=== PATIENT | male | born 1950 | race Caucasian/White ===

== ENCOUNTER 2020-08-01 11:49 | Outpatient (REF) | payer MEDICARE, SELFPAY ==
[2020-08-01 13:53] LABS: MANUAL DIFF FLAG NO
[2020-08-01 14:03] LABS: Basophils Absolute Auto 0.1 X10*3/uL (0.0-0.2); Basophils Percent Auto 0.8 % (0-2); Eosinophils Absolute Auto 0.1 X10*3/uL (0.0-0.4); Eosinophils Percent Auto 2.2 % (0-4); Hematocrit 39.5 % (42-52); Hemoglobin 13.9 g/dl (14.0-18.0); Imm Gran Abs Auto 0.03 X10*3/uL (0.00-0.03); Imm Gran Pct Auto 0.5 % (0.0-0.4); Lymphocytes Absolute Auto 1.1 X10*3/uL (1.2-4.9); Lymphocytes Percent Auto 17.4 % (20-40); Mean Corpuscular HGB Conc 35.2 g/dl (31.0-36.0); Monocytes Absolute Auto 0.6 X10*3/uL (0.1-1.2); Neutrophils Absolute Auto 4.4 X10*3/uL (2.0-8.3); Neutrophils Percent Auto 70.1 % (45-73); Platelet Count 163 X10*3/uL (160-400); Red Blood Count 4.34 X10*6/uL (4.60-5.80); Red Cell Distribution Width 12.4 % (11.0-16.0); White Blood Count 6.3 X10*3/uL (4.8-10.8)
[2020-08-01 14:06] LABS: Estimated Average Glucose 183 mg/dL
[2020-08-01 14:39] LABS: Glucose Urine UA NEG (NEG); Leukocyte Esterase Urine NEG (NEG); Nitrite Urine NEG (NEG); Specific Gravity - Urine 1.025 (1.005-1.025); Urine Blood NEG (NEG); Urine Ketones NEG (NEG); Urine Protein NEG (NEG-TRACE)
[2020-08-01 14:42] LABS: Appearance Urine CLEAR; Color Urine YELLOW
[2020-08-01 14:44] LABS: Creatinine Urine 110.91 mg/dL; Microalbum/Creatinine Ratio Ur 12.6 ug/mg cr
[2020-08-01 14:49] LABS: Alanine Aminotransferase 102 U/L (0-40); Albumin Level 4.1 g/dL (3.5-5.0); Alkaline Phosphatase 35 U/L (39-117); Anion Gap 17 (12-20); Aspartate Amino Transferase 83 U/L (5-37); Bilirubin Total 1.2 mg/dL (0.0-1.0); Blood Urea Nitrogen 34 mg/dL (9-16); Calcium 9.1 mg/dL (8.4-10.2); Carbon Dioxide 23 mmol/L (22-29); Chloride 99 mmol/L (96-108); Cholesterol 142 mg/dL; Estimated Glomerular Filt Rate 48; Glucose Fasting 202 mg/dL (60-99); HDL Cholesterol 35 mg/dL; LDL Cholesterol Calculated 52 mg/dl; Potassium 4.2 mmol/l (3.3-5.1); Sodium 135 mmol/L (135-145); Total Protein 6.9 g/dL (6.5-8.0); Triglycerides 276 mg/dL
[2020-08-01 15:19] LABS: RBC Urine 0 /HPF (0); Squamous Epithelial Cell Urine TRACE /LPF; WBC Urine 0-2 /HPF (0-4)
== END 2020-08-01 11:50 | disposition home or self-care (01) ==
LOC: HO.HMGCLDS 11:49
PROVIDERS: PCP Internal Medicine; Visit Provider Internal Medicine
DX: E11.9 Type 2 diabetes mellitus without complications (principal); I48.20 Chronic atrial fibrillation, unspecified; I10 Essential (primary) hypertension; E66.09 Other obesity due to excess calories; K22.70 Barrett's esophagus without dysplasia
CPT/HCPCS: 36415; 80053; 80061; 81001; 82043; 83036; 85025

== ENCOUNTER 2020-10-30 12:11 | Outpatient (REF) | payer MEDICARE, SELFPAY ==
[2020-10-30 13:58] LABS: MANUAL DIFF FLAG NO
[2020-10-30 14:09] LABS: Basophils Percent Auto 0.5 % (0-2); Eosinophils Absolute Auto 0.2 X10*3/uL (0.0-0.4); Eosinophils Percent Auto 2.7 % (0-4); Hematocrit 40.4 % (42-52); Hemoglobin 13.8 g/dl (14.0-18.0); Imm Gran Abs Auto 0.03 X10*3/uL (0.00-0.03); Imm Gran Pct Auto 0.5 % (0.0-0.4); Lymphocytes Absolute Auto 1.2 X10*3/uL (1.2-4.9); Lymphocytes Percent Auto 18.4 % (20-40); Mean Corpuscular HGB Conc 34.2 g/dl (31.0-36.0); Mean Corpuscular Hemoglobin 31.7 pg (27.0-33.0); Mean Corpuscular Volume 92.7 fL (80-98); Mean Platelet Volume 11.6 fL (9.4-12.4); Monocytes Absolute Auto 0.7 X10*3/uL (0.1-1.2); Monocytes Percent Auto 10.3 % (2-11); Neutrophils Absolute Auto 4.5 X10*3/uL (2.0-8.3); Neutrophils Percent Auto 67.6 % (45-73); Platelet Count 215 X10*3/uL (160-400); Red Blood Count 4.36 X10*6/uL (4.60-5.80); Red Cell Distribution Width 12.3 % (11.0-16.0); White Blood Count 6.6 X10*3/uL (4.8-10.8)
[2020-10-30 14:30] LABS: Alanine Aminotransferase 85 U/L (0-40); Albumin Level 4.2 g/dL (3.5-5.0); Alkaline Phosphatase 34 U/L (39-117); Anion Gap 16 (12-20); Aspartate Amino Transferase 55 U/L (5-37); Bilirubin Total 0.8 mg/dL (0.0-1.0); Blood Urea Nitrogen 32 mg/dL (9-16); Calcium 9.4 mg/dL (8.4-10.2); Carbon Dioxide 28 mmol/L (22-29); Chloride 100 mmol/L (96-108); Cholesterol 142 mg/dL; Estimated Glomerular Filt Rate 40; Glucose Fasting 152 mg/dL (60-99); HDL Cholesterol 37 mg/dL; LDL Cholesterol Calculated 72 mg/dl; Potassium 4.7 mmol/l (3.3-5.1); Sodium 139 mmol/L (135-145); Total Protein 7.1 g/dL (6.5-8.0); Triglycerides 168 mg/dL
[2020-10-30 14:33] LABS: Estimated Average Glucose 123 mg/dL; Hemoglobin A1c % 5.9 %
== END 2020-10-30 12:12 | disposition home or self-care (01) ==
LOC: HO.HMGCLDS 12:11
PROVIDERS: PCP Internal Medicine; Visit Provider Internal Medicine
DX: E11.9 Type 2 diabetes mellitus without complications (principal); I10 Essential (primary) hypertension; K22.70 Barrett's esophagus without dysplasia; E66.09 Other obesity due to excess calories
CPT/HCPCS: 36415; 80053; 80061; 83036; 85025

== ENCOUNTER → 2020-12-11 13:45 | Outpatient (BNVA) | payer MEDICARE, SELFPAY | PROVIDERS: PCP Internal Medicine; Visit Provider Internal Medicine Cardiovascular Disease | DX: I48.20 Chronic atrial fibrillation, unspecified (principal); I10 Essential (primary) hypertension | CPT/HCPCS: 93005; 99212 ==

== ENCOUNTER 2021-02-04 13:02 | Outpatient (REF) | payer MEDICARE, SELFPAY ==
[2021-02-04 13:56] LABS: Glucose Urine UA NEG (NEG); Leukocyte Esterase Urine NEG (NEG); Nitrite Urine NEG (NEG); PH 5.5 (5.0-8.0); Specific Gravity - Urine 1.025 (1.005-1.025); Urine Blood NEG (NEG); Urine Ketones NEG (NEG); Urine Protein NEG (NEG-TRACE)
[2021-02-04 13:59] LABS: Appearance Urine CLEAR; Color Urine YELLOW
[2021-02-04 14:06] LABS: RBC Urine 0 /HPF (0); WBC Urine 0 /HPF (0-4)
[2021-02-04 14:17] LABS: Estimated Average Glucose 117 mg/dL; Hemoglobin A1c % 5.7 %
[2021-02-04 14:33] LABS: Creatinine Urine 143.68 mg/dL; Microalbum/Creatinine Ratio Ur 34.1 ug/mg cr
[2021-02-04 14:40] LABS: Alanine Aminotransferase 89 U/L (0-40); Albumin Level 4.3 g/dL (3.5-5.0); Alkaline Phosphatase 36 U/L (39-117); Anion Gap 17 (12-20); Aspartate Amino Transferase 64 U/L (5-37); Bilirubin Total 1.7 mg/dL (0.0-1.0); Blood Urea Nitrogen 28 mg/dL (9-16); Calcium 9.5 mg/dL (8.4-10.2); Carbon Dioxide 26 mmol/L (22-29); Chloride 99 mmol/L (96-108); Estimated Glomerular Filt Rate 44; Glucose Random 259 mg/dL (60-115); Potassium 4.4 mmol/L (3.3-5.1); Sodium 138 mmol/L (135-145); Total Protein 7.2 g/dL (6.5-8.0)
== END 2021-02-04 13:03 | disposition home or self-care (01) ==
LOC: HO.HMGCLDS 13:02
PROVIDERS: PCP Internal Medicine; Visit Provider Internal Medicine
DX: E11.9 Type 2 diabetes mellitus without complications (principal); I10 Essential (primary) hypertension
CPT/HCPCS: 36415; 80053; 81001; 82043; 83036

== ENCOUNTER 2021-05-03 13:32 | Outpatient (REF) | payer MEDICARE, SELFPAY ==
[2021-05-03 17:11] LABS: Alanine Aminotransferase 85 U/L (0-40); Albumin Level 4.1 g/dL (3.5-5.0); Alkaline Phosphatase 37 U/L (39-117); Anion Gap 16 (12-20); Aspartate Amino Transferase 64 U/L (5-37); Bilirubin Total 1.3 mg/dL (0.0-1.0); Blood Urea Nitrogen 31 mg/dL (9-16); Calcium 9.1 mg/dL (8.4-10.2); Carbon Dioxide 28 mmol/L (22-29); Chloride 101 mmol/L (96-108); Estimated Glomerular Filt Rate 48; Glucose Random 266 mg/dL (60-115); Potassium 4.5 mmol/L (3.3-5.1); Sodium 140 mmol/L (135-145)
== END 2021-05-03 13:33 | disposition home or self-care (01) ==
LOC: HO.HMGCLDS 13:32
PROVIDERS: PCP Internal Medicine; Visit Provider Internal Medicine
DX: E11.9 Type 2 diabetes mellitus without complications (principal); I10 Essential (primary) hypertension
CPT/HCPCS: 36415; 80053

== ENCOUNTER 2021-09-02 12:06 | Outpatient (REF) | payer MEDICARE, SELFPAY ==
[2021-09-02 13:56] LABS: MANUAL DIFF FLAG NO
[2021-09-02 14:01] LABS: Basophils Percent Auto 0.7 % (0-2); Eosinophils Absolute Auto 0.2 X10*3/uL (0.0-0.4); Eosinophils Percent Auto 2.9 % (0-4); Imm Gran Abs Auto 0.02 X10*3/uL (0.00-0.03); Imm Gran Pct Auto 0.4 % (0.0-0.4); Lymphocytes Percent Auto 17.3 % (20-40); Mean Corpuscular Hemoglobin 32.7 pg (27.0-33.0); Mean Corpuscular Volume 93.5 fL (80.0-98.0); Mean Platelet Volume 11.6 fL (9.4-12.4); Monocytes Absolute Auto 0.6 X10*3/uL (0.1-1.2); Monocytes Percent Auto 10.8 % (2-11); Neutrophils Absolute Auto 3.8 x10*3/uL (2.0-8.3); Neutrophils Percent Auto 67.9 % (45-73); Platelet Count 176 X10*3/uL (160-400); Red Blood Count 4.28 X10*6/uL (4.60-5.80); Red Cell Distribution Width 12.4 % (11.0-16.0); White Blood Count 5.6 X10*3/uL (4.8-10.8)
[2021-09-02 14:16] LABS: Estimated Average Glucose 123 mg/dL; Hemoglobin A1C 149.9742 umol/L; Hemoglobin A1c % 5.9 %
[2021-09-02 14:28] LABS: Alanine Aminotransferase 112 U/L (0-40); Albumin Level 4.1 g/dL (3.5-5.0); Alkaline Phosphatase 32 U/L (39-117); Anion Gap 17 (12-20); Aspartate Amino Transferase 84 U/L (5-37); Bilirubin Total 1.3 mg/dL (0.0-1.0); Blood Urea Nitrogen 22 mg/dL (9-16); Calcium 9.4 mg/dL (8.4-10.2); Carbon Dioxide 27 mmol/L (22-29); Chloride 100 mmol/L (96-108); Cholesterol 149 mg/dL; Estimated Glomerular Filt Rate 46; Glucose Fasting 162 mg/dL (60-99); HDL Cholesterol 41 mg/dL; LDL Cholesterol Calculated 79 mg/dl; Potassium 5.1 mmol/L (3.3-5.1); Sodium 139 mmol/L (135-145); Triglycerides 148 mg/dL
[2021-09-02 14:33] LABS: Creatinine Urine 193.29 mg/dL; Microalbum/Creatinine Ratio Ur 19.6 ug/mg cr
[2021-09-02 14:42] LABS: Appearance Urine CLEAR; Color Urine YELLOW; Glucose Urine UA NEG (NEG); Leukocyte Esterase Urine NEG (NEG); Nitrite Urine NEG (NEG); Specific Gravity - Urine >= 1.030 (1.005-1.025); Urine Blood NEG (NEG); Urine Ketones NEG (NEG); Urine Protein TRACE MG/DL (NEG-TRACE)
[2021-09-02 14:55] LABS: Thyroid Stimulating Hormone 1.82 uIU/mL (0.32-4.0); Vitamin D 25-OH Total 31.9 ng/mL (>30)
[2021-09-02 15:09] LABS: PSA,Total (Free>4and<10) 14.42 ng/mL (0.00-4.00)
[2021-09-02 15:17] LABS: RBC Urine 0-2 /HPF (0); WBC Urine 0-2 /HPF (0-4)
== END 2021-09-02 12:07 | disposition home or self-care (01) ==
LOC: HO.HMGCLDS 12:06
PROVIDERS: PCP Internal Medicine; Visit Provider Internal Medicine
DX: E11.9 Type 2 diabetes mellitus without complications (principal); I10 Essential (primary) hypertension; I48.20 Chronic atrial fibrillation, unspecified; K22.70 Barrett's esophagus without dysplasia; Z12.5 Encounter for screening for malignant neoplasm of prostate
CPT/HCPCS: 36415; 80053; 80061; 81001; 82043; 82306; 83036; 84153; 84443; 85025

== ENCOUNTER 2021-09-16 12:23 | Inpatient (IN) | payer MEDICARE, SELFPAY ==
--- NOTE | 2021-09-16 | ECG_ITS ---
Test Reason : AFIB Blood Pressure : / mmHG Vent. Rate : 115 BPM Atrial Rate : 000 BPM P-R Int : 000 ms QRS Dur : 098 ms QT Int : 354 ms P-R-T Axes : 000 090 -23 degrees QTc Int : 489 ms Atrial fibrillation with rapid ventricular response with premature ventricular or aberrantly conducted complexes Rightward axis Incomplete right bundle branch block Nonspecific ST and T wave abnormality Abnormal ECG When compared with ECG of 10-MAR-2018 14:00, Atrial fibrillation has replaced Sinus rhythm Vent. rate has increased BY 63 BPM Nonspecific T wave abnormality no longer evident in Lateral leads Referred By: Generic ED Physician Electronically Signed By:Toño Baptiste
--- NOTE | ~2021-09-16 | XR_ITS ---
EXAMINATION: XR CHEST CLINICAL INFORMATION: Ankle swelling. Cardiac history. COMPARISON: Previous chest x-ray April 2018 TECHNIQUE: 2 views of the chest were obtained. FINDINGS: The cardiac silhouette is slightly enlarged. Hilar and mediastinal contours are unremarkable. The lungs are clear. There is no pleural effusion. There are degenerative changes of the spine. XR/XR chest 2V IMPRESSION: Slightly enlarged cardiac silhouette.
[2021-09-16 13:08] VITALS: BP 126/79; PULSE 103; RESP 18; TEMP 37.2; O2SAT 97; BMI 34.2
[2021-09-16 14:00] LABS: MANUAL DIFF FLAG NO
[2021-09-16 14:04] LABS: Basophils Percent Auto 0.2 % (0-2); Hematocrit 37.8 % (42.0-52.0); Hemoglobin 12.9 g/dl (14.0-18.0); Imm Gran Abs Auto 0.08 X10*3/uL (0.00-0.03); Imm Gran Pct Auto 0.6 % (0.0-0.4); Lymphocytes Percent Auto 7.7 % (20-40); Mean Corpuscular HGB Conc 34.1 g/dl (31.0-36.0); Mean Corpuscular Hemoglobin 31.9 pg (27.0-33.0); Mean Corpuscular Volume 93.6 fL (80.0-98.0); Mean Platelet Volume 10.7 fL (9.4-12.4); Monocytes Absolute Auto 1.4 X10*3/uL (0.1-1.2); Monocytes Percent Auto 10.3 % (2-11); Neutrophils Percent Auto 81.2 % (45-73); Platelet Count 324 X10*3/uL (160-400); Red Blood Count 4.04 X10*6/uL (4.60-5.80); Red Cell Distribution Width 12.1 % (11.0-16.0); White Blood Count 13.5 X10*3/uL (4.8-10.8)
[2021-09-16 14:17] LABS: Anion Gap 21 (12-20); Blood Urea Nitrogen 26 mg/dL (9-16); C Reactive Protein 24.97 mg/dL (< or = 0.50); Calcium 8.7 mg/dL (8.4-10.2); Carbon Dioxide 23 mmol/L (22-29); Chloride 93 mmol/L (96-108); Creatinine Clr Calc Pharmacy 55.2; Estimated Glomerular Filt Rate 51; Glucose Random 186 mg/dL (60-115); Sodium 133 mmol/L (135-145)
[2021-09-16 14:21] LABS: B Type Natriuretic Peptide 333 pg/mL (<100)
[2021-09-16 14:45] LABS: Erythrocyte Sedimentation Rate 86 MM/HR (0-15)
--- NOTE | 2021-09-16 17:28 | ED.GENADULT ---
HPI - General Adult General Chief complaint: General Medical Stated complaint: Swollen ankles/pain when walking Time Seen by Provider: 09/16/21 17:28 Source: patient Mode of arrival: ambulatory Limitations: no limitations History of Present Illness HPI narrative: Over the last weekend he had fever and chills, 7days ago he had the flu shot, now with diffuse arthralgias and myalgias. Unable to walk secondary to pain. Onset (ago): day(s) Severity: moderate Quality: aching Pain Consistency: constant Associated symptoms: fever/chills Related Data Home Medications Medication Instructions Recorded Confirmed brimonidine 0.2 % eye drops 1 drp OPHTHALMIC (EYE) BID 12/11/20 09/16/21 hydrochlorothiazide 50 mg tablet 50 mg PO DAILY 12/11/20 09/17/21 lisinopril 40 mg tablet 40 mg PO DAILY 12/11/20 09/16/21 metformin 750 mg tablet,extended 2,250 mg PO BEDTIME 12/11/20 09/16/21 release 24 hr pantoprazole 40 mg tablet,delayed 40 mg PO DAILY 12/11/20 09/16/21 release simvastatin 10 mg tablet 10 mg PO BEDTIME 12/11/20 09/16/21 netarsudil 0.02 %-latanoprost 1 drp OPHTHALMIC (EYE) BEDTIME 09/16/21 09/16/21 0.005 % eye drops ([facility]) timolol maleate 0.5 % eye drops 1 drp OPHTHALMIC (EYE) QAM 09/16/21 09/16/21 Previous Rx's Medication Instructions Recorded metoprolol succinate 200 mg 200 mg PO DAILY #90 cap 11/27/20 tablet,extended release 24 hr verapamil 180 mg 24 hr 180 mg PO DAILY #90 cap 04/19/21 capsule,extended release rivaroxaban 20 mg tablet 20 mg PO DAILY #90 tab 06/18/21 glipizide 5 mg tablet 5 mg PO BIDWMEAL #60 tab 09/21/21 prednisone 10 mg tablet See Rx Instructions .ROUTE 09/21/21 .COMPLEX #45 tab tramadol 50 mg tablet 50 mg PO TID PRN #30 tab 09/21/21 Allergies Allergy/AdvReac Type Severity Reaction Status Date / Time No Known Allergies Allergy Verified 09/16/21 13:08 [No Known Allergies*] Review of Systems Constitutional: Constitutional: Reports no additional constitutional complaints Eyes: Eyes: Reports no additional eye complaints ENT: Denies dizziness Cardiovascular: Cardiovascular: Reports no additional cardiovascular complaints Respiratory: Respiratory: Reports as per HPI Gastrointestinal: Gastrointestinal: Reports no additional gastrointestinal complaints Musculoskeletal: Musculoskeletal: Reports no additional musculoskeletal complaints Integumentary/Breasts: Skin/Breast: Denies rash Neurologic: Reports system reviewed and no additional complaints, except as documented, Denies dizziness and Denies Sensory deficit (Neuro) Psychiatric: Psychiatric: Denies anxiety [facility] Past Medical History Medical History Chronic atrial fibrillation Diabetes mellitus HTN (hypertension) Surgical History History of hip surgery Hx of tonsillectomy Family History Family History Father CVD (cardiovascular disease) Mother No problems noted. Social History Social History Household Members: Spouse Housing: House Do you presently have visiting nurse or other home services: No Patient Tobacco Use Status: Former Tobacco user Tobacco use type: Cigarette Second Hand Smoke Exposure: Yes service: No Current occupational status: employed Physical Exam Vital Signs: Vital Signs: Last Vital Signs Temp 97.8 F 09/21/21 12:00 Pulse 86 09/21/21 12:00 Resp 18 09/21/21 12:00 BP 109/74 09/21/21 12:00 Pulse Ox 97 09/21/21 12:00 BMI result Body Mass Index 34.2 Const: General: healthy appearing Nutritional Appearance: average body habitus Orientation/consciousness: oriented to person and patient oriented x3 Limitations: no limitations HENMT: Head: Yes normal to inspection Ears: external ears normal General nose exam: Normal external nose present Mouth: Normal oral and palatal mucosa present and oropharynx normal Throat: Yes posterior oropharynx normal Eyes: General: appearance normal, both eyes and all related structures Neck: Other: supple Neck: Yes normal visual inspection Chest: Chest palpation & inspection: normal inspection of the chest Resp: Auscultation: clear to auscultation bilaterally Cardio: Other: IRRR Jugular venous distension: no JVD GI: Inspection: Yes normal to inspection Palpation (GI): Soft to palpation, nontender and No hepatosplenomegaly present Auscultation: normal bowel sounds : General: Yes no CVA tenderness Back/Spine/Pelvis: Back: no CVA tenderness Skin: General skin exam: no rashes or lesions noted Neuro: General: oriented to person and patient oriented x3 Cranial nerves: Yes CN's II-XII intact bilaterally Motor exam (neuro): 5/5 motor strength present throughout Sensory Exam: No Sensory deficit (Neuro) Extrem: Other: 3+ edema bilaterally Psych: Appearance: grossly normal Course Reevaluation(s) Reevaluation #1: patient with elevated WBC, with diffuse joint pain, chills, sed rate of 87, elevated CRP, unable to ambulate secondary to arthraligias. Patient pearce cultured will admit for infectious vs rheumatologic source of inflammation. Time: 20:38 Medical Decision Making Lab Data Result diagrams: 09/21/21 05:37 09/21/21 05:37 Labs: Lab Results 09/16/21 09/16/21 09/16/21 Range/Units 13:55 13:55 13:55 WBC 13.5 H (4.8-10.8) X10*3/uL RBC 4.04 L (4.60-5.80) X10*6/uL Hgb 12.9 L (14.0-18.0) g/dl Hct 37.8 L (42.0-52.0) % MCV 93.6 (80.0-98.0) fL MCH 31.9 (27.0-33.0) pg MCHC 34.1 (31.0-36.0) g/dl RDW 12.1 (11.0-16.0) % Plt Count 324 D (160-400) X10*3/uL MPV 10.7 (9.4-12.4) fL Immature Gran % (Auto) 0.6 H (0.0-0.4) % Neut % (Auto) 81.2 H (45-73) % Lymph % (Auto) 7.7 L (20-40) % [place] % (Auto) 10.3 (2-11) % Eos % (Auto) 0.0 (0-4) % Baso % (Auto) 0.2 (0-2) % Lymph # (Auto) 1.0 L (1.2-4.9) X10*3/uL [place] # (Auto) 1.4 H (0.1-1.2) X10*3/uL Eos # (Auto) 0.0 (0.0-0.4) X10*3/uL Baso # (Auto) 0.0 (0.0-0.2) X10*3/uL Abs Immat Gran (auto) 0.08 H (0.00-0.03) X10*3/uL Absolute Neuts (auto) 11.0 H (2.0-8.3) x10*3/uL Absolute Nucleated RBC 0.000 (0.0-0.012) X10*3/uL Nucleated RBC % (auto) 0.0 (0.0-0.2) /100WBC ESR (0-15) MM/HR Sodium 133 L (135-145) mmol/L Potassium 4.0 D (3.3-5.1) mmol/L Chloride 93 L (96-108) mmol/L Carbon Dioxide 23 (22-29) mmol/L Anion Gap 21 H (12-20) BUN 26 H (9-16) mg/dL Creatinine 1.38 (0.5-1.4) mg/dL Estim Creat Clear Calc 55.2 Estimated GFR 51 Random Glucose 186 H (60-115) mg/dL Lactic Acid (0.5-2.0) mmol/L Calcium 8.7 D (8.4-10.2) mg/dL Total Bilirubin (0.0-1.0) mg/dL Direct Bilirubin (0.0-0.5) mg/dL AST (5-37) U/L ALT (0-40) U/L Alkaline Phosphatase (39-117) U/L C-Reactive Protein 24.97 H (< or = 0.50) mg/dL B-Natriuretic Peptide 333 H (<100) pg/mL Total Protein (6.5-8.0) g/dL Albumin (3.5-5.0) g/dL Urine Color Urine Appearance Urine pH (5.0-8.0) Ur Specific [place] (1.005-1.025) Urine Protein (NEG-TRACE) MG/DL Urine Glucose (UA) (NEG) MG/DL Urine Ketones (NEG) MG/DL Urine Blood (NEG) Urine Nitrite (NEG) Ur Leukocyte Esterase (NEG) Urine RBC (0) /HPF Urine WBC (0-4) /HPF Ur Squamous Epith Cells /LPF Urine Bacteria /LPF Influenza Type A (PCR) (Negative) Influenza Type B (PCR) (Negative) RSV RNA Qual (PCR) (Negative) SARS-CoV-2 RNA (RT-PCR) (Negative) 09/16/21 09/16/21 09/16/21 Range/Units 13:55 19:31 19:32 WBC (4.8-10.8) X10*3/uL RBC (4.60-5.80) X10*6/uL Hgb (14.0-18.0) g/dl Hct (42.0-52.0) % MCV (80.0-98.0) fL MCH (27.0-33.0) pg MCHC (31.0-36.0) g/dl RDW (11.0-16.0) % Plt Count (160-400) X10*3/uL MPV (9.4-12.4) fL Immature Gran % (Auto) (0.0-0.4) % Neut % (Auto) (45-73) % Lymph % (Auto) (20-40) % [place] % (Auto) (2-11) % Eos % (Auto) (0-4) % Baso % (Auto) (0-2) % Lymph # (Auto) (1.2-4.9) X10*3/uL [place] # (Auto) (0.1-1.2) X10*3/uL Eos # (Auto) (0.0-0.4) X10*3/uL Baso # (Auto) (0.0-0.2) X10*3/uL Abs Immat Gran (auto) (0.00-0.03) X10*3/uL Absolute Neuts (auto) (2.0-8.3) x10*3/uL Absolute Nucleated RBC (0.0-0.012) X10*3/uL Nucleated RBC % (auto) (0.0-0.2) /100WBC ESR 86 H (0-15) MM/HR Sodium (135-145) mmol/L Potassium (3.3-5.1) mmol/L Chloride (96-108) mmol/L Carbon Dioxide (22-29) mmol/L Anion Gap (12-20) BUN (9-16) mg/dL Creatinine (0.5-1.4) mg/dL Estim Creat Clear Calc Estimated GFR Random Glucose (60-115) mg/dL Lactic Acid (0.5-2.0) mmol/L Calcium (8.4-10.2) mg/dL Total Bilirubin (0.0-1.0) mg/dL Direct Bilirubin (0.0-0.5) mg/dL AST (5-37) U/L ALT (0-40) U/L Alkaline Phosphatase (39-117) U/L C-Reactive Protein (< or = 0.50) mg/dL B-Natriuretic Peptide (<100) pg/mL Total Protein (6.5-8.0) g/dL Albumin (3.5-5.0) g/dL Urine Color DK YELLOW Urine Appearance CLEAR Urine pH 5.5 (5.0-8.0) Ur Specific [place] >= 1.030 H (1.005-1.025) Urine Protein 1+ H (NEG-TRACE) MG/DL Urine Glucose (UA) NEG (NEG) MG/DL Urine Ketones 15 (NEG) MG/DL Urine Blood NEG (NEG) Urine Nitrite POS H (NEG) Ur Leukocyte Esterase NEG (NEG) Urine RBC 0-2 (0) /HPF Urine WBC 0-2 (0-4) /HPF Ur Squamous Epith Cells TRACE /LPF Urine Bacteria TRACE /LPF Influenza Type A (PCR) NEGATIVE (Negative) Influenza Type B (PCR) NEGATIVE (Negative) RSV RNA Qual (PCR) NEGATIVE (Negative) SARS-CoV-2 RNA (RT-PCR) NEGATIVE (Negative) 09/16/21 09/16/21 Range/Units 19:44 19:45 WBC (4.8-10.8) X10*3/uL RBC (4.60-5.80) X10*6/uL Hgb (14.0-18.0) g/dl Hct (42.0-52.0) % MCV (80.0-98.0) fL MCH (27.0-33.0) pg MCHC (31.0-36.0) g/dl RDW (11.0-16.0) % Plt Count (160-400) X10*3/uL MPV (9.4-12.4) fL Immature Gran % (Auto) (0.0-0.4) % Neut % (Auto) (45-73) % Lymph % (Auto) (20-40) % [place] % (Auto) (2-11) % Eos % (Auto) (0-4) % Baso % (Auto) (0-2) % Lymph # (Auto) (1.2-4.9) X10*3/uL [place] # (Auto) (0.1-1.2) X10*3/uL Eos # (Auto) (0.0-0.4) X10*3/uL Baso # (Auto) (0.0-0.2) X10*3/uL Abs Immat Gran (auto) (0.00-0.03) X10*3/uL Absolute Neuts (auto) (2.0-8.3) x10*3/uL Absolute Nucleated RBC (0.0-0.012) X10*3/uL Nucleated RBC % (auto) (0.0-0.2) /100WBC ESR (0-15) MM/HR Sodium (135-145) mmol/L Potassium (3.3-5.1) mmol/L Chloride (96-108) mmol/L Carbon Dioxide (22-29) mmol/L Anion Gap (12-20) BUN (9-16) mg/dL Creatinine (0.5-1.4) mg/dL Estim Creat Clear Calc Estimated GFR Random Glucose (60-115) mg/dL Lactic Acid 1.4 (0.5-2.0) mmol/L Calcium (8.4-10.2) mg/dL Total Bilirubin 1.7 H (0.0-1.0) mg/dL Direct Bilirubin 0.9 H (0.0-0.5) mg/dL AST 26 D (5-37) U/L ALT 62 H (0-40) U/L Alkaline Phosphatase 45 D (39-117) U/L C-Reactive Protein (< or = 0.50) mg/dL B-Natriuretic Peptide (<100) pg/mL Total Protein 7.0 (6.5-8.0) g/dL Albumin 3.6 (3.5-5.0) g/dL Urine Color Urine Appearance Urine pH (5.0-8.0) Ur Specific [place] (1.005-1.025) Urine Protein (NEG-TRACE) MG/DL Urine Glucose (UA) (NEG) MG/DL Urine Ketones (NEG) MG/DL Urine Blood (NEG) Urine Nitrite (NEG) Ur Leukocyte Esterase (NEG) Urine RBC (0) /HPF Urine WBC (0-4) /HPF Ur Squamous Epith Cells /LPF Urine Bacteria /LPF Influenza Type A (PCR) (Negative) Influenza Type B (PCR) (Negative) RSV RNA Qual (PCR) (Negative) SARS-CoV-2 RNA (RT-PCR) (Negative) Imaging Data Chest x-ray: Radiologist's impression: IMPRESSION: Slightly enlarged cardiac silhouette. Discharge Plan Discharge Clinical Impression: Leukocytosis, Elevated sed rate Arthralgia Qualifiers: Joint pain location: unspecified Qualified Code(s): M25.50 - Pain in unspecified joint Patient Disposition: Admitted As Inpatient Interventions: Admission Worksheet (ED) Last Done: 09/18/21 06:28 Discharge Date/Time: 09/18/21 01:00
[2021-09-16] MEDS: Ketorolac Tromethamine 30 MG/ML VIAL IVPUSH (18:18)
--- NOTE | 2021-09-16 19:30 | PC.NURSE ---
assumed care of pt. Pt resting in stretcher in NAD. Pt remains on monitor. Pt awaiting for room assignment. Pt denies any complaints at this time. will continue to monitor pt.
[2021-09-16 20:00] VITALS: BP 109/83; PULSE 102; RESP 21; TEMP 36.7; O2SAT 97
[2021-09-16 20:02] LABS: Appearance Urine CLEAR; Color Urine DK YELLOW; Glucose Urine UA NEG (NEG); Leukocyte Esterase Urine NEG (NEG); PH 5.5 (5.0-8.0); Specific Gravity - Urine >= 1.030 (1.005-1.025); UACC Culture Trigger YES; Urine Blood NEG (NEG); Urine Ketones 15 MG/DL (NEG); Urine Protein 1+ MG/DL (NEG-TRACE)
[2021-09-16 20:12] LABS: Lactic Acid 1.4 mmol/L (0.5-2.0)
[2021-09-16 20:16] LABS: Alanine Aminotransferase 62 U/L (0-40); Albumin Level 3.6 g/dL (3.5-5.0); Alkaline Phosphatase 45 U/L (39-117); Aspartate Amino Transferase 26 U/L (5-37); Bilirubin Direct 0.9 mg/dL (0.0-0.5); Bilirubin Total 1.7 mg/dL (0.0-1.0)
[2021-09-16 20:20] LABS: Bacteria Urine TRACE /LPF; RBC Urine 0-2 /HPF (0); Squamous Epithelial Cell Urine TRACE /LPF; WBC Urine 0-2 /HPF (0-4)
[2021-09-16 20:21] LABS: Nitrite Urine POS (NEG)
[2021-09-16 20:33] LABS: Influenza A PCR NEGATIVE (Negative); Influenza B PCR NEGATIVE (Negative); Resp Syncy Virus RNA Qual PCR NEGATIVE (Negative); SARS COV2 PCR INHOUSE NEGATIVE (Negative)
--- NOTE | 2021-09-16 21:52 | PHA.MEDREC ---
Pharmacy Consult ? Medication Reconciliation Pharmacy has completed the medication reconciliation. There are no remarkable issues for provider's attention. Shawanda Anderson, CesarD
--- NOTE | 2021-09-16 22:16 | PM.IMHP ---
History of Present Illness Date of Service: 09/16/21 Chief Complaint: joint pains 71-year-old male with a past medical history of hypertension, , hyperlipidemia, diabetes,chronic AFib on Xarelto, presented to the hospital today with a chief complaint of severe joint pains diffusely. Patient reported that about 10-14 days ago he had new episode flu-like symptoms; which gradually improved; last he went to his PCP and had flu shot done. The following day started to notice severe pain in his joints diffusely more so in the bilateral ankles and knee joints; also complained of mild pain in bilateral shoulders and bilateral elbows. Denies any rash. Denies any fevers. Denies any urinary symptoms. Denies any recent travel or sick contacts. Patient reported that he met his grandchildren on the Thanksgiving - aged about 8 years. Denies being sick. Review of all other systems is negative except mentioned above ER course: Per ER team patient noted to have elevated white count, ESR and CRP; no obvious signs effusion or any concern for septic joint. Patient had severe pain on ambulation hence admitted for observation. [facility] Medical History Chronic atrial fibrillation Diabetes mellitus HTN (hypertension) Family History Father CVD (cardiovascular disease) Mother No problems noted. Pertinent family history: As mentioned above Surgical History History of hip surgery Hx of tonsillectomy Social History Advance Directives: No Advance Directives Information Provided: Yes Meds Allergies Allergy/AdvReac Type Severity Reaction Status Date / Time No Known Allergies Allergy Verified 09/16/21 13:08 [No Known Allergies*] Active Medications: Current Medications Acetaminophen (Acetaminophen 325 Mg Tablet) 650 mg PO Q6H PRN PRN Reason: Pain, Mild (Pain Scale 1-3) Dextrose (Dextrose 50 % 25 Gm/50 Ml Vial) 25 gm IVPUSH Q15M PRN; Protocol PRN Reason: per Hypoglycemia Standing Ord. Enoxaparin Sodium (Enoxaparin Sodium 40 Mg/0.4 Ml Syringe) 40 mg SUBCUT Q24H BEN Glucose (Glucose Gel 15 Gm Gel..Gram.) 15 gm PO Q15M PRN; Protocol PRN Reason: per Hypoglycemia Standing Ord. Insulin Human Lispro (Insulin Lispro 100 Unit/Ml 3 Ml Vial) 0 unit SUBCUT QIDACHS [facility]; Protocol Melatonin (Melatonin 3 Mg Tablet) 6 mg PO BEDTIME PRN PRN Reason: Insomnia Pharmacy Consult (Consult Rx Perform Med Rec) 1 each MISCELLANE ONCE PRN PRN Reason: Consult order Senna (Sennosides 8.6 Mg Tablet) 17.2 mg PO BEDTIME PRN PRN Reason: Constipation Sodium Chloride (0.9 % Sodium Chloride Flush 3 Ml Syringe) 3 ml IVFLUSH QSHIFT [facility] Home Medications Medication Instructions Recorded Confirmed Last Taken Type brimonidine 0.2 % eye drops 1 drp OPHTHALMIC (EYE) BID 12/11/20 09/16/21 Unknown History glipizide 5 mg tablet 5 mg PO DAILY 12/11/20 09/16/21 Unknown History hydrochlorothiazide 50 mg tablet 50 mg PO DAILY 12/11/20 09/16/21 Unknown History lisinopril 40 mg tablet 40 mg PO DAILY 12/11/20 09/16/21 Unknown History metformin 750 mg tablet,extended 2,250 mg PO BEDTIME 12/11/20 09/16/21 Unknown History release 24 hr pantoprazole 40 mg tablet,delayed 40 mg PO DAILY 12/11/20 09/16/21 Unknown History release simvastatin 10 mg tablet 10 mg PO BEDTIME 12/11/20 09/16/21 Unknown History netarsudil 0.02 %-latanoprost 1 drp OPHTHALMIC (EYE) BEDTIME 09/16/21 09/16/21 Unknown History [facility] timolol maleate 0.5 % eye drops 1 drp OPHTHALMIC (EYE) QAM 09/16/21 09/16/21 Unknown History Physical Exam Vital Signs and Narrative: Vital Signs: Last Vital Signs Temp 98.0 F 09/16/21 20:00 Pulse 102 H 09/16/21 20:00 Resp 21 H 09/16/21 20:00 BP 109/83 09/16/21 20:00 Pulse Ox 97 09/16/21 20:00 BMI result Body Mass Index 34.2 Gen: Appears be in no acute distress HEENT: NCAT, Moist mucosa. Pulmonary: Vesicular breath sounds, fair air entry CVS: Normal S1-S2 Abdomen: BS+, Soft, Nontender Extremities: Warm well perfused; no cross erythema/ swelling noticed around the ankles, knee joints, with joint; range of motion limited secondary to the pain. No signs of cellulitis. Neuro: Alert and awake. Integumentary: No rash noted. Results Labs CBC and Chem 7: 09/16/21 13:55 09/16/21 13:55 Labs: Laboratory Results - last 24 hr 09/16/21 09/16/21 09/16/21 13:55 13:55 13:55 MCV 93.6 MCH 31.9 MCHC 34.1 RDW 12.1 Plt Count 324 D MPV 10.7 Immature Gran % (Auto) 0.6 H Neut % (Auto) 81.2 H Lymph % (Auto) 7.7 L [place] % (Auto) 10.3 Eos % (Auto) 0.0 Baso % (Auto) 0.2 Lymph # (Auto) 1.0 L [place] # (Auto) 1.4 H Eos # (Auto) 0.0 Baso # (Auto) 0.0 Abs Immat Gran (auto) 0.08 H Absolute Neuts (auto) 11.0 H Absolute Nucleated RBC 0.000 Nucleated RBC % (auto) 0.0 ESR Anion Gap 21 H Estim Creat Clear Calc 55.2 Estimated GFR 51 Random Glucose 186 H Lactic Acid Calcium 8.7 D Total Bilirubin Direct Bilirubin AST ALT Alkaline Phosphatase C-Reactive Protein 24.97 H B-Natriuretic Peptide 333 H Total Protein Albumin Urine Color Urine Appearance Urine pH Ur Specific [place] Urine Protein Urine Glucose (UA) Urine Ketones Urine Blood Urine Nitrite Ur Leukocyte Esterase Urine RBC Urine WBC Ur Squamous Epith Cells Urine Bacteria Influenza Type A (PCR) Influenza Type B (PCR) RSV RNA Qual (PCR) SARS-CoV-2 RNA (RT-PCR) 09/16/21 09/16/21 09/16/21 13:55 19:31 19:32 MCV MCH MCHC RDW Plt Count MPV Immature Gran % (Auto) Neut % (Auto) Lymph % (Auto) [place] % (Auto) Eos % (Auto) Baso % (Auto) Lymph # (Auto) [place] # (Auto) Eos # (Auto) Baso # (Auto) Abs Immat Gran (auto) Absolute Neuts (auto) Absolute Nucleated RBC Nucleated RBC % (auto) ESR 86 H Anion Gap Estim Creat Clear Calc Estimated GFR Random Glucose Lactic Acid Calcium Total Bilirubin Direct Bilirubin AST ALT Alkaline Phosphatase C-Reactive Protein B-Natriuretic Peptide Total Protein Albumin Urine Color DK YELLOW Urine Appearance CLEAR Urine pH 5.5 Ur Specific [place] >= 1.030 H Urine Protein 1+ H Urine Glucose (UA) NEG Urine Ketones 15 Urine Blood NEG Urine Nitrite POS H Ur Leukocyte Esterase NEG Urine RBC 0-2 Urine WBC 0-2 Ur Squamous Epith Cells TRACE Urine Bacteria TRACE Influenza Type A (PCR) NEGATIVE Influenza Type B (PCR) NEGATIVE RSV RNA Qual (PCR) NEGATIVE SARS-CoV-2 RNA (RT-PCR) NEGATIVE 09/16/21 09/16/21 19:44 19:45 MCV MCH MCHC RDW Plt Count MPV Immature Gran % (Auto) Neut % (Auto) Lymph % (Auto) [place] % (Auto) Eos % (Auto) Baso % (Auto) Lymph # (Auto) [place] # (Auto) Eos # (Auto) Baso # (Auto) Abs Immat Gran (auto) Absolute Neuts (auto) Absolute Nucleated RBC Nucleated RBC % (auto) ESR Anion Gap Estim Creat Clear Calc Estimated GFR Random Glucose Lactic Acid 1.4 Calcium Total Bilirubin 1.7 H Direct Bilirubin 0.9 H AST 26 D ALT 62 H Alkaline Phosphatase 45 D C-Reactive Protein B-Natriuretic Peptide Total Protein 7.0 Albumin 3.6 Urine Color Urine Appearance Urine pH Ur Specific [place] Urine Protein Urine Glucose (UA) Urine Ketones Urine Blood Urine Nitrite Ur Leukocyte Esterase Urine RBC Urine WBC Ur Squamous Epith Cells Urine Bacteria Influenza Type A (PCR) Influenza Type B (PCR) RSV RNA Qual (PCR) SARS-CoV-2 RNA (RT-PCR) Imaging Radiologist's Impressions: Impressions Chest X-Ray 09/16/21 13:28 IMPRESSION: Slightly enlarged cardiac silhouette. Assessment and Plan (1) Arthralgia: Qualifiers: Joint pain location: unspecified Qualified Code(s): M25.50 - Pain in unspecified joint Status: Acute 71-year-old male with a past medical history of hypertension, , hyperlipidemia, diabetes,chronic AFib on Xarelto, presented to the hospital today with a chief complaint of severe joint pains diffusely. Polyarthralgia: Patient has elevated ESR CRP. Otherwise no gross of signs of bacterial infection pain control PT/ OT eventually Will obtain ALYSSA and parvovirus antibodies. Fall precautions History of hypertension / hyperlipidemia: Continue home medications metoprolol, statin, lisinopril. Hold hydrochlorothiazide. History of diabetes: Insulin sliding scale. Hold home glipizide and metformin. History of glaucoma: Continue home eye drops History of AFib: Rate controlled. Continue home Xarelto DVT prophylaxis: Patient on Xarelto Code status: Full code Quality Stroke Does the patient have a stroke diagnosis?: No VTE Prior VTE?: No VTE Risk Level:: Medical - moderate - high VTE Device Contraindication: Treatment Not Indicated VTE Drug Contraindication: N/A - Med Ordered
--- NOTE | 2021-09-17 00:36 | PC.NURSE ---
pt resting in stretcher denies cp, or SOB at this time. pt remains on monitor in NAD. will continue to monitor pt.
[2021-09-17 02:31] VITALS: BP 128/77; PULSE 106; RESP 18; TEMP 37; O2SAT 98
--- NOTE | 2021-09-17 03:12 | PC.NURSE ---
PT WAKES TO VOICE, IN NAD, RESPIRATIONS NON-LABORED AT THIS TIME. VS OBTAINED. PT AWAITING FOR DISPO.
[2021-09-17] MEDS: Omeprazole 20 MG CAPSULE.DR PO (06:04)
[2021-09-17] MEDS: Acetaminophen 325 MG TABLET 650 MG PO (06:04)
[2021-09-17 07:36] LABS: MANUAL DIFF FLAG NO
[2021-09-17 07:41] LABS: Basophils Percent Auto 0.2 % (0-2); Eosinophils Percent Auto 0.1 % (0-4); Hematocrit 34.7 % (42.0-52.0); Hemoglobin 12.1 g/dl (14.0-18.0); Imm Gran Abs Auto 0.07 X10*3/uL (0.00-0.03); Imm Gran Pct Auto 0.8 % (0.0-0.4); Lymphocytes Absolute Auto 0.7 X10*3/uL (1.2-4.9); Lymphocytes Percent Auto 7.7 % (20-40); Mean Corpuscular HGB Conc 34.9 g/dl (31.0-36.0); Mean Corpuscular Hemoglobin 32.3 pg (27.0-33.0); Mean Corpuscular Volume 92.5 fL (80.0-98.0); Mean Platelet Volume 10.4 fL (9.4-12.4); Monocytes Percent Auto 11.4 % (2-11); Neutrophils Absolute Auto 7.3 x10*3/uL (2.0-8.3); Neutrophils Percent Auto 79.8 % (45-73); Platelet Count 295 X10*3/uL (160-400); Red Blood Count 3.75 X10*6/uL (4.60-5.80); Red Cell Distribution Width 12.1 % (11.0-16.0); White Blood Count 9.1 X10*3/uL (4.8-10.8)
[2021-09-17 07:45] LABS: Glucose, Whole Blood 191 mg/dL (60-115)
[2021-09-17] MEDS: Insulin Lispro 100 UNIT/ML 3 ML VIAL SUBCUT ×4 (07:52→21:03)
[2021-09-17] MEDS: timoloL maleate 0.5 % Oph Sol 5 ML DRBTL 1 DROP EYE-BOTH (07:53)
[2021-09-17] MEDS: Brimonidine Tartrate 0.2% Oph 5 ML BOTTLE 1 DROP EYE-BOTH ×2 (07:53→21:03)
[2021-09-17 07:55] VITALS: BP 137/88; PULSE 117
[2021-09-17] MEDS: VerapamiL HCL SR 180 MG TABLET.ER PO (07:55)
[2021-09-17] MEDS: Metoprolol Succinate ER 100 MG TAB.ER.24H 200 MG PO (07:57)
[2021-09-17] MEDS: lisinopriL 40 MG TABLET PO (07:59)
[2021-09-17] MEDS: Rivaroxaban 20 MG TABLET PO (07:59)
[2021-09-17 08:03] LABS: Anion Gap 19 (12-20); Blood Urea Nitrogen 34 mg/dL (9-16); Calcium 8.3 mg/dL (8.4-10.2); Carbon Dioxide 23 mmol/L (22-29); Chloride 94 mmol/L (96-108); Creatinine Clr Calc Pharmacy 54.8; Estimated Glomerular Filt Rate 50; Glucose Random 204 mg/dL (60-115); Potassium 3.3 mmol/L (3.3-5.1); Sodium 133 mmol/L (135-145)
--- NOTE | 2021-09-17 09:29 | MHC.CM.PN ---
Met with patient in regards to discharge planning. Patient lives with his , ambulates independently and had no services prior to coming to the hospital. PCP verified. Patient denies having a HCP at this time. Patient and his are in the process of completing them at home. Not interested in completing one now. Patient received 3 Moderna vaccines. Obs notice explained and signed. Patient's will transfer him home when medically stable. Patient feels he can safely return home if his pain is controlled. Continue to monitor for d/c needs.
[2021-09-17 13:09] LABS: Glucose, Whole Blood 216 mg/dL (60-115)
--- NOTE | 2021-09-17 13:35 | P.PNIM_ITS ---
Subjective Subjective Date of Service: 09/17/21 Review of Systems follow-up joint pain Still with diffuse joint pain from shoulders to ankles Denies chest pain, shortness breath, nausea, vomiting, diarrhea, fever, chills All other systems are reviewed and are negative Physical Exam Vital Signs: Vital Signs: Last Vital Signs Temp 98.6 F 09/17/21 02:31 Pulse 117 H 09/17/21 07:55 Resp 18 09/17/21 02:31 BP 137/88 09/17/21 07:55 Pulse Ox 98 09/17/21 02:31 BMI result Body Mass Index 34.2 Appearing in no acute distress lung sounds are clear to auscultation heart regular rate rhythm, clear S1, S2 positive bowel sounds, abdomen is soft, nontender neuro patient is alert x3, no focal deficits Objective Data Active Medications Acetaminophen (Acetaminophen 325 Mg Tablet) 650 mg PO Q6H PRN PRN Reason: Pain, Mild (Pain Scale 1-3) Last Admin: 09/17/21 06:04 Dose: 650 mg Documented by: DAVID Atorvastatin Calcium (Atorvastatin Calcium 10 Mg Tablet) 10 mg PO BEDTIME [facility] Brimonidine Tartrate (Brimonidine Tartrate 0.2% Oph 5 Ml Bottle) 1 drop EYE- BOTH BID [facility] Last Admin: 09/17/21 07:53 Dose: 1 drop Documented by: ALY Dextrose (Dextrose 50 % 25 Gm/50 Ml Vial) 25 gm IVPUSH Q15M PRN; Protocol PRN Reason: per Hypoglycemia Standing Ord. Glucose (Glucose Gel 15 Gm Gel..Gram.) 15 gm PO Q15M PRN; Protocol PRN Reason: per Hypoglycemia Standing Ord. Insulin Human Lispro (Insulin Lispro 100 Unit/Ml 3 Ml Vial) 0 unit SUBCUT QIDACHS [facility]; Protocol Last Admin: 09/17/21 13:12 Dose: 4 unit Documented by: MATTHEW Ketorolac Tromethamine (Ketorolac Tromethamine 30 Mg/Ml Vial) 15 mg IVPUSH Q6H [facility] Lisinopril (Lisinopril 40 Mg Tablet) 40 mg PO DAILY [facility]; Protocol Last Admin: 09/17/21 07:59 Dose: 40 mg Documented by: ALY Melatonin (Melatonin 3 Mg Tablet) 6 mg PO BEDTIME PRN PRN Reason: Insomnia Metoprolol Succinate (Metoprolol Succinate Er 100 Mg Tab.Er.24h) 200 mg PO DAILY [facility]; Protocol Last Admin: 09/17/21 07:57 Dose: 200 mg Documented by: ALY Non-Formulary Medication (Netarsudil-Latanoprost [Rocklatan]) 1 drop EYE-BOTH BEDTIME [facility] Omeprazole (Omeprazole 20 Mg Capsule.Dr) 20 mg PO DAILY@0630 [facility] Last Admin: 09/17/21 06:04 Dose: 20 mg Documented by: DAVID Pharmacy Consult (Consult Rx Perform Med Rec) 1 each MISCELLANE ONCE PRN PRN Reason: Consult order Rivaroxaban (Rivaroxaban 20 Mg Tablet) 20 mg PO DAILY [facility] Last Admin: 09/17/21 07:59 Dose: 20 mg Documented by: ALY Senna (Sennosides 8.6 Mg Tablet) 17.2 mg PO BEDTIME PRN PRN Reason: Constipation Sodium Chloride (0.9 % Sodium Chloride Flush 3 Ml Syringe) 3 ml IVFLUSH QSHIFT [facility] Last Admin: 09/17/21 08:08 Dose: Not Given Documented by: ALY Non-Admin Reason: Med Not Available Timolol Maleate (Timolol Maleate 0.5 % Oph Madina 5 Ml Drbtl) 1 drop EYE-BOTH DAILY [facility] Last Admin: 09/17/21 07:53 Dose: 1 drop Documented by: ALY Verapamil HCl (Verapamil Hcl Sr 180 Mg Tablet.Er) 180 mg PO DAILY [facility]; Protocol Last Admin: 09/17/21 07:55 Dose: 180 mg Documented by: ALY Labs CBC & Chem 7: 09/17/21 07:23 09/17/21 07:23 Labs: Laboratory Results - last 24 hr 09/16/21 09/16/21 09/16/21 13:55 13:55 13:55 MCV 93.6 MCH 31.9 MCHC 34.1 RDW 12.1 Plt Count 324 D MPV 10.7 Immature Gran % (Auto) 0.6 H Neut % (Auto) 81.2 H Lymph % (Auto) 7.7 L [place] % (Auto) 10.3 Eos % (Auto) 0.0 Baso % (Auto) 0.2 Lymph # (Auto) 1.0 L [place] # (Auto) 1.4 H Eos # (Auto) 0.0 Baso # (Auto) 0.0 Abs Immat Gran (auto) 0.08 H Absolute Neuts (auto) 11.0 H Absolute Nucleated RBC 0.000 Nucleated RBC % (auto) 0.0 ESR Anion Gap 21 H Estim Creat Clear Calc 55.2 Estimated GFR 51 POC Glucose Random Glucose 186 H Lactic Acid Calcium 8.7 D Total Bilirubin Direct Bilirubin AST ALT Alkaline Phosphatase C-Reactive Protein 24.97 H B-Natriuretic Peptide 333 H Total Protein Albumin Urine Color Urine Appearance Urine pH Ur Specific Joes Urine Protein Urine Glucose (UA) Urine Ketones Urine Blood Urine Nitrite Ur Leukocyte Esterase Urine RBC Urine WBC Ur Squamous Epith Cells Urine Bacteria Influenza Type A (PCR) Influenza Type B (PCR) RSV RNA Qual (PCR) SARS-CoV-2 RNA (RT-PCR) 09/16/21 09/16/21 09/16/21 13:55 19:31 19:32 MCV MCH MCHC RDW Plt Count MPV Immature Gran % (Auto) Neut % (Auto) Lymph % (Auto) [place] % (Auto) Eos % (Auto) Baso % (Auto) Lymph # (Auto) [place] # (Auto) Eos # (Auto) Baso # (Auto) Abs Immat Gran (auto) Absolute Neuts (auto) Absolute Nucleated RBC Nucleated RBC % (auto) ESR 86 H Anion Gap Estim Creat Clear Calc Estimated GFR POC Glucose Random Glucose Lactic Acid Calcium Total Bilirubin Direct Bilirubin AST ALT Alkaline Phosphatase C-Reactive Protein B-Natriuretic Peptide Total Protein Albumin Urine Color DK YELLOW Urine Appearance CLEAR Urine pH 5.5 Ur Specific Joes >= 1.030 H Urine Protein 1+ H Urine Glucose (UA) NEG Urine Ketones 15 Urine Blood NEG Urine Nitrite POS H Ur Leukocyte Esterase NEG Urine RBC 0-2 Urine WBC 0-2 Ur Squamous Epith Cells TRACE Urine Bacteria TRACE Influenza Type A (PCR) NEGATIVE Influenza Type B (PCR) NEGATIVE RSV RNA Qual (PCR) NEGATIVE SARS-CoV-2 RNA (RT-PCR) NEGATIVE 09/16/21 09/16/21 09/17/21 19:44 19:45 07:23 MCV 92.5 MCH 32.3 MCHC 34.9 RDW 12.1 Plt Count 295 MPV 10.4 Immature Gran % (Auto) 0.8 H Neut % (Auto) 79.8 H Lymph % (Auto) 7.7 L [place] % (Auto) 11.4 H Eos % (Auto) 0.1 Baso % (Auto) 0.2 Lymph # (Auto) 0.7 L [place] # (Auto) 1.0 Eos # (Auto) 0.0 Baso # (Auto) 0.0 Abs Immat Gran (auto) 0.07 H Absolute Neuts (auto) 7.3 Absolute Nucleated RBC 0.000 Nucleated RBC % (auto) 0.0 ESR Anion Gap Estim Creat Clear Calc Estimated GFR POC Glucose Random Glucose Lactic Acid 1.4 Calcium Total Bilirubin 1.7 H Direct Bilirubin 0.9 H AST 26 D ALT 62 H Alkaline Phosphatase 45 D C-Reactive Protein B-Natriuretic Peptide Total Protein 7.0 Albumin 3.6 Urine Color Urine Appearance Urine pH Ur Specific Joes Urine Protein Urine Glucose (UA) Urine Ketones Urine Blood Urine Nitrite Ur Leukocyte Esterase Urine RBC Urine WBC Ur Squamous Epith Cells Urine Bacteria Influenza Type A (PCR) Influenza Type B (PCR) RSV RNA Qual (PCR) SARS-CoV-2 RNA (RT-PCR) 09/17/21 09/17/21 09/17/21 07:23 07:41 13:00 MCV MCH MCHC RDW Plt Count MPV Immature Gran % (Auto) Neut % (Auto) Lymph % (Auto) [place] % (Auto) Eos % (Auto) Baso % (Auto) Lymph # (Auto) [place] # (Auto) Eos # (Auto) Baso # (Auto) Abs Immat Gran (auto) Absolute Neuts (auto) Absolute Nucleated RBC Nucleated RBC % (auto) ESR Anion Gap 19 Estim Creat Clear Calc 54.8 Estimated GFR 50 POC Glucose 191 H 216 H Random Glucose 204 H Lactic Acid Calcium 8.3 L Total Bilirubin Direct Bilirubin AST ALT Alkaline Phosphatase C-Reactive Protein B-Natriuretic Peptide Total Protein Albumin Urine Color Urine Appearance Urine pH Ur Specific Joes Urine Protein Urine Glucose (UA) Urine Ketones Urine Blood Urine Nitrite Ur Leukocyte Esterase Urine RBC Urine WBC Ur Squamous Epith Cells Urine Bacteria Influenza Type A (PCR) Influenza Type B (PCR) RSV RNA Qual (PCR) SARS-CoV-2 RNA (RT-PCR) Microbiology Microbiology Results: Microbiology 09/16/21 19:31 Urine Culture - Preliminary Urine clean catch - Urine chavez top No growth to date. Assessment and Plan (1) Polyarthralgia: Status: Acute (2) HTN (hypertension): Status: Acute Assessment and Plan: 71-year-old male with a past medical history of hypertension, , hyperlipidemia, diabetes,chronic AFib on Xarelto, presented to the hospital today with a chief complaint of severe joint pains diffusel after having flu-like symptoms and then having the flu vaccine.? Polyarthralgia. Possibly secondary to viral syndrome/infection Diffuse joint pain throughout his body Elevated CRP and ESR RSV and flu negative ALYSSA,Parovirus, Lyme, HIV, hepatitis panel pending No fever or infectious type symptoms noted Supportive care Toradol for pain and inflammation Hypertension. Continue lisinopril, metoprolol Diabetes mellitus Sliding scale, ADA diet History of AFib Rate controlled.? Continue home Xarelto DVT prophylaxis:? Patient on Xarelto Code status: Full code Attending Dr. Levy Quality Stroke Does the patient have a stroke diagnosis?: No VTE Prior VTE?: No VTE Risk Level:: Medical - moderate - high VTE Device Contraindication: Treatment Not Indicated VTE Drug Contraindication: N/A - Med Ordered
[2021-09-17] MEDS: Ketorolac Tromethamine 30 MG/ML VIAL 15 MG IVPUSH ×2 (14:09→21:02)
[2021-09-17 14:27] VITALS: BP 125/73; PULSE 92; RESP 18; TEMP 37.1; O2SAT 94
[2021-09-17 16:00] VITALS: BP 135/80; PULSE 102; RESP 18; TEMP 37; O2SAT 95
[2021-09-17 16:45] LABS: Glucose, Whole Blood 207 mg/dL (60-115)
[2021-09-17] MEDS: 0.9 % Sodium Chloride Flush 3 ML SYRINGE IVFLUSH ×2 (17:27→21:04)
[2021-09-17 20:00] VITALS: BP 148/92; PULSE 99; RESP 18; TEMP 36.8; O2SAT 97
[2021-09-17 20:36] LABS: Glucose, Whole Blood 209 mg/dL (60-115)
[2021-09-17] MEDS: Atorvastatin Calcium 10 MG TABLET PO (21:02)
[2021-09-18] VITALS (7 sets, daily range): BP systolic 123–141; BP diastolic 68–91; PULSE 83–109; RESP 16–18; TEMP 36.2–36.9; O2SAT 95–98
[2021-09-18] MEDS: Ketorolac Tromethamine 30 MG/ML VIAL 15 MG IVPUSH ×3 (01:45→13:24)
[2021-09-18 04:39] LABS: HBS Num1 5.53 mIU/mL (0-7.99); HIV AB/AG Nonreactive (Nonreactive); HIV Num 1 0.06 S/CO (0.00-0.99); ~Hepatitis B Surface Antibody NONREACTIVE (Nonreactive)
[2021-09-18 05:07] LABS: HBc Num1 10.31 S/CO (0.00-0.79); HBsAGNum1 0.22 S/CO (0.00-0.99); Hepatitis B Surface Antigen Negative (Negative); ~HepC Num1 15.22 S/CO (0.00-0.79); ~Hepatitis C Antibody Reactive (Nonreactive)
[2021-09-18 05:22] LABS: Hepatitis A Antibody IgM 0.76 Index (0-0.79); ~Hepatitis A Antibody IgM Nonreactive (Nonreactive)
[2021-09-18] MEDS: Omeprazole 20 MG CAPSULE.DR PO ×2 (05:28→17:35)
[2021-09-18 06:06] LABS: Hematocrit 35.2 % (42.0-52.0); Hemoglobin 11.7 g/dl (14.0-18.0); Mean Corpuscular HGB Conc 33.2 g/dl (31.0-36.0); Mean Corpuscular Hemoglobin 31.5 pg (27.0-33.0); Mean Corpuscular Volume 94.6 fL (80.0-98.0); Mean Platelet Volume 10.6 fL (9.4-12.4); Platelet Count 316 X10*3/uL (160-400); Red Blood Count 3.72 X10*6/uL (4.60-5.80); White Blood Count 9.1 X10*3/uL (4.8-10.8)
[2021-09-18 06:08] LABS: HBc Num2 11.16 S/CO; HBc Num3 11.08 S/CO; Hepatitis B Core Antibody Reactive (Nonreactive)
[2021-09-18 06:35] LABS: Anion Gap 17 (12-20); Blood Urea Nitrogen 36 mg/dL (9-16); Calcium 8.4 mg/dL (8.4-10.2); Carbon Dioxide 27 mmol/L (22-29); Chloride 95 mmol/L (96-108); Creatinine Clr Calc Pharmacy 54.4; Estimated Glomerular Filt Rate 50; Glucose Random 196 mg/dL (60-115); Potassium 3.2 mmol/L (3.3-5.1); Sodium 136 mmol/L (135-145)
[2021-09-18 07:27] LABS: Glucose, Whole Blood 235 mg/dL (60-115)
--- NOTE | 2021-09-18 07:34 | HE.PHANOTE ---
Messaged YORDY Gomez to see if she could check in with the patients family about bringing in his non-form eye drops. Will follow up.
[2021-09-18] MEDS: Rivaroxaban 20 MG TABLET PO (07:39)
[2021-09-18] MEDS: VerapamiL HCL SR 180 MG TABLET.ER PO (07:39)
[2021-09-18] MEDS: lisinopriL 40 MG TABLET PO (07:39)
[2021-09-18] MEDS: Insulin Lispro 100 UNIT/ML 3 ML VIAL SUBCUT ×4 (07:39→21:34)
[2021-09-18] MEDS: Metoprolol Succinate ER 100 MG TAB.ER.24H 200 MG PO (07:40)
[2021-09-18] MEDS: timoloL maleate 0.5 % Oph Sol 5 ML DRBTL 1 DROP EYE-BOTH (07:43)
[2021-09-18] MEDS: Brimonidine Tartrate 0.2% Oph 5 ML BOTTLE 1 DROP EYE-BOTH ×2 (07:43→21:34)
[2021-09-18] MEDS: Potassium Chloride ER 20 MEQ TAB.ER.PRT 40 MEQ PO (09:03)
[2021-09-18] MEDS: 0.9 % Sodium Chloride Flush 3 ML SYRINGE IVFLUSH ×3 (09:03→21:36)
--- NOTE | 2021-09-18 09:36 | MHC.CLN ---
NUTRITION DIET CHANGED TO DIABETIC 2000 KCAL, CARDIAC DUE TO HX DM AND TAKES DM MEDS.
[2021-09-18 11:30] LABS: Glucose, Whole Blood 241 mg/dL (60-115)
[2021-09-18] MEDS: Acetaminophen 325 MG TABLET 650 MG PO (12:08)
--- NOTE | 2021-09-18 14:03 | P.PNIM_ITS ---
Subjective Subjective Date of Service: 09/18/21 Review of Systems Follow up polyarthralgias Feels better with Toradol Denies chest pain, shortness of breath, nausea, vomiting, diarrhea All other systems are reviewed and are negative Physical Exam Vital Signs: Vital Signs: Last Vital Signs Temp 98.5 F 09/18/21 11:39 Pulse 83 09/18/21 13:21 Resp 18 09/18/21 11:39 BP 135/90 H 09/18/21 13:21 Pulse Ox 98 09/18/21 13:21 BMI result Body Mass Index 34.2 Appearing in no acute distress lung sounds are clear to auscultation heart regular rate rhythm, clear S1, S2 positive bowel sounds, abdomen is soft, nontender neuro patient is alert x3, no focal deficits MSK joint pain diffusely with no effusions Objective Data Active Medications Acetaminophen (Acetaminophen 325 Mg Tablet) 650 mg PO Q6H PRN PRN Reason: Pain, Mild (Pain Scale 1-3) Last Admin: 09/18/21 12:08 Dose: 650 mg Documented by: SALIMA Atorvastatin Calcium (Atorvastatin Calcium 10 Mg Tablet) 10 mg PO BEDTIME [facility] Last Admin: 09/17/21 21:02 Dose: 10 mg Documented by: MAURY Brimonidine Tartrate (Brimonidine Tartrate 0.2% Oph 5 Ml Bottle) 1 drop EYE- BOTH BID [facility] Last Admin: 09/18/21 07:43 Dose: 1 drop Documented by: SALIMA Dextrose (Dextrose 50 % 25 Gm/50 Ml Vial) 25 gm IVPUSH Q15M PRN; Protocol PRN Reason: per Hypoglycemia Standing Ord. Glucose (Glucose Gel 15 Gm Gel..Gram.) 15 gm PO Q15M PRN; Protocol PRN Reason: per Hypoglycemia Standing Ord. Ibuprofen (Ibuprofen 800 Mg Tablet) 800 mg PO TIDWM [facility] Insulin Human Lispro (Insulin Lispro 100 Unit/Ml 3 Ml Vial) 0 unit SUBCUT QIDACHS [facility]; Protocol Last Admin: 09/18/21 12:08 Dose: 2 unit Documented by: SALIMA Lisinopril (Lisinopril 40 Mg Tablet) 40 mg PO DAILY [facility]; Protocol Last Admin: 09/18/21 07:39 Dose: 40 mg Documented by: SALIMA Melatonin (Melatonin 3 Mg Tablet) 6 mg PO BEDTIME PRN PRN Reason: Insomnia Metoprolol Succinate (Metoprolol Succinate Er 100 Mg Tab.Er.24h) 200 mg PO DAILY [facility]; Protocol Last Admin: 09/18/21 07:40 Dose: 200 mg Documented by: SALIMA Pt Own Med ( Netarsudil- Latanoprost [ Rocklatan] 0.02-0. 005 % Drops) 1 each EYE-BOTH BEDTIME [facility] Omeprazole (Omeprazole 20 Mg Capsule.Dr) 20 mg PO BID@0630,1630 [facility] Pharmacy Consult (Consult Rx Perform Med Rec) 1 each MISCELLANE ONCE PRN PRN Reason: Consult order Rivaroxaban (Rivaroxaban 20 Mg Tablet) 20 mg PO DAILY [facility] Last Admin: 09/18/21 07:39 Dose: 20 mg Documented by: SALIMA Senna (Sennosides 8.6 Mg Tablet) 17.2 mg PO BEDTIME PRN PRN Reason: Constipation Sodium Chloride (0.9 % Sodium Chloride Flush 3 Ml Syringe) 3 ml IVFLUSH QSHIFT [facility] Last Admin: 09/18/21 09:03 Dose: 3 ml Documented by: SALIMA Timolol Maleate (Timolol Maleate 0.5 % Oph Madina 5 Ml Drbtl) 1 drop EYE-BOTH DAILY [facility] Last Admin: 09/18/21 07:43 Dose: 1 drop Documented by: SALIMA Verapamil HCl (Verapamil Hcl Sr 180 Mg Tablet.Er) 180 mg PO DAILY [facility]; Protocol Last Admin: 09/18/21 07:39 Dose: 180 mg Documented by: SALIMA Labs CBC & Chem 7: 09/18/21 05:32 09/18/21 05:32 Labs: Laboratory Results - last 24 hr 09/17/21 09/17/21 09/17/21 14:22 16:21 20:05 MCV MCH MCHC RDW Plt Count MPV Absolute Nucleated RBC Nucleated RBC % (auto) Anion Gap Estim Creat Clear Calc Estimated GFR POC Glucose 207 H 209 H Random Glucose Calcium Hepatitis A IgM Ab Nonreactive Hep Bs Antigen Negative Hep Bs Antibody NONREACTIVE Hep B Core Total Ab Reactive Hepatitis C Ab (EIA) Reactive H HIV 1&2 Ab/P24 Ag 4thGn Nonreactive 09/18/21 09/18/21 09/18/21 05:32 05:32 07:17 MCV 94.6 MCH 31.5 MCHC 33.2 RDW 12.0 Plt Count 316 MPV 10.6 Absolute Nucleated RBC 0.000 Nucleated RBC % (auto) 0.0 Anion Gap 17 Estim Creat Clear Calc 54.4 Estimated GFR 50 POC Glucose 235 H Random Glucose 196 H Calcium 8.4 Hepatitis A IgM Ab Hep Bs Antigen Hep Bs Antibody Hep B Core Total Ab Hepatitis C Ab (EIA) HIV 1&2 Ab/P24 Ag 4thGn 09/18/21 11:24 MCV MCH MCHC RDW Plt Count MPV Absolute Nucleated RBC Nucleated RBC % (auto) Anion Gap Estim Creat Clear Calc Estimated GFR POC Glucose 241 H Random Glucose Calcium Hepatitis A IgM Ab Hep Bs Antigen Hep Bs Antibody Hep B Core Total Ab Hepatitis C Ab (EIA) HIV 1&2 Ab/P24 Ag 4thGn Microbiology Microbiology Results: Microbiology 09/16/21 19:31 Urine Culture - Final Urine clean catch - Urine chavez top No growth. 09/16/21 20:02 Blood Culture - Preliminary Blood - Venous No growth after 24 hours. 09/16/21 19:45 Blood Culture - Preliminary Blood - Venous No growth after 24 hours. Assessment and Plan (1) Polyarthralgia: Status: Acute (2) HTN (hypertension): Status: Acute (3) Chronic atrial fibrillation: Status: Acute Assessment and Plan: 71-year-old male with a past medical history of hypertension, , hyperlipidemia, diabetes,chronic AFib on Xarelto, presented to the hospital today with a chief complaint of severe joint pains diffusel after having flu-like symptoms and then having the flu vaccine.? Polyarthralgia.? Possibly secondary to viral syndrome/infection Diffuse joint pain throughout his body Elevated CRP and ESR RSV and flu negative ALYSSA,Parovirus, Lyme pending No fever or infectious type symptoms noted Supportive care Change toradol to IBU 800mg TID Hypokalemia repleted follow BMP Hypertension.? Continue lisinopril, metoprolol Diabetes mellitus Sliding scale, ADA diet History of paroxysmal AFib Rate controlled.? Continue home Xarelto DVT prophylaxis:? Patient on Xarelto Code status: Full code Attending Dr. Levy Quality Stroke Does the patient have a stroke diagnosis?: No VTE Prior VTE?: No VTE Risk Level:: Medical - moderate - high VTE Device Contraindication: Treatment Not Indicated VTE Drug Contraindication: N/A - Med Ordered
--- NOTE | 2021-09-18 14:41 | MHC.CM.PN ---
PLAN IS FOR PATIENT TO REMAIN TONIGHT. PT BRET RECOMMENDS SHORT TERM REHAB. WILL MONITOR AND LIKELY DC TOMORROW.
[2021-09-18 17:03] LABS: Glucose, Whole Blood 190 mg/dL (60-115)
[2021-09-18] MEDS: Ibuprofen 800 MG TABLET PO (17:36)
[2021-09-18 20:48] LABS: Glucose, Whole Blood 210 mg/dL (60-115)
[2021-09-18] MEDS: Atorvastatin Calcium 10 MG TABLET PO (21:35)
[2021-09-19] VITALS (8 sets, daily range): BP systolic 135–148; BP diastolic 54–96; PULSE 56–115; RESP 17–18; TEMP 36.1–37.3; O2SAT 96–99
[2021-09-19] MEDS: Omeprazole 20 MG CAPSULE.DR PO ×2 (05:12→17:03)
[2021-09-19] MEDS: Acetaminophen 325 MG TABLET 650 MG PO ×3 (05:14→17:02)
[2021-09-19 05:26] LABS: Lyme Abs Screen <0.90 index
[2021-09-19 07:47] LABS: Glucose, Whole Blood 227 mg/dL (60-115)
[2021-09-19] MEDS: 0.9 % Sodium Chloride Flush 3 ML SYRINGE IVFLUSH ×3 (08:06→20:13)
[2021-09-19] MEDS: lisinopriL 40 MG TABLET PO (08:06)
[2021-09-19] MEDS: Ibuprofen 800 MG TABLET PO (08:06)
[2021-09-19] MEDS: Insulin Lispro 100 UNIT/ML 3 ML VIAL SUBCUT ×4 (08:07→21:30)
[2021-09-19] MEDS: Rivaroxaban 20 MG TABLET PO (08:07)
[2021-09-19] MEDS: Metoprolol Succinate ER 100 MG TAB.ER.24H 200 MG PO (08:07)
[2021-09-19] MEDS: VerapamiL HCL SR 180 MG TABLET.ER PO (08:07)
[2021-09-19] MEDS: timoloL maleate 0.5 % Oph Sol 5 ML DRBTL 1 DROP EYE-BOTH (08:10)
[2021-09-19] MEDS: Brimonidine Tartrate 0.2% Oph 5 ML BOTTLE 1 DROP EYE-BOTH ×2 (08:11→20:13)
[2021-09-19 11:21] LABS: Glucose, Whole Blood 341 mg/dL (60-115)
[2021-09-19] MEDS: methylPREDNISolone Sod Succ 125 MG/2 ML VIAL 60 MG IVPUSH ×2 (12:17→17:02)
--- NOTE | 2021-09-19 12:30 | MHC.CM.PN ---
PATIENT IS BEING STARTED ON STEROIDS NO PLAN FOR DC TODAY.
--- NOTE | 2021-09-19 14:01 | P.PNIM_ITS ---
Subjective Subjective Date of Service: 09/19/21 Interval History: still notes persistent joint aches and fatigue; no improvement with Motrin Review of Systems denies chest pain Denies shortness of breath Denies nausea vomiting diarrhea Physical Exam Vital Signs: Vital Signs: Last Vital Signs Temp 97.8 F 09/19/21 11:36 Pulse 56 09/19/21 11:36 Resp 18 09/19/21 11:36 BP 144/54 H 09/19/21 11:36 Pulse Ox 97 09/19/21 11:36 BMI result Body Mass Index 34.2 Const: Other: awake alert no acute distress uncomfortable secondary to pain Resp: Other: clear to auscultation bilaterally Cardio: Other: no S4; positive S1-S2; GI: Other: soft nontender nondistended with normoactive bowel sounds. No peritoneal signs Neuro: Other: cranial nerves 2-12 grossly intact as tested. Motor is 5/5 all extremities. Sensation intact. Cognition appropriate Extrem: Other: mild effusion D IP joints bilateral hands. Bilateral ankles with edema/effusion Objective Data Active Medications Acetaminophen (Acetaminophen 325 Mg Tablet) 650 mg PO Q6H PRN PRN Reason: Pain, Mild (Pain Scale 1-3) Last Admin: 09/19/21 11:51 Dose: 650 mg Documented by: SALIMA Atorvastatin Calcium (Atorvastatin Calcium 10 Mg Tablet) 10 mg PO BEDTIME [facility] Last Admin: 09/18/21 21:35 Dose: 10 mg Documented by: MAURY Brimonidine Tartrate (Brimonidine Tartrate 0.2% Oph 5 Ml Bottle) 1 drop EYE- BOTH BID [facility] Last Admin: 09/19/21 08:11 Dose: 1 drop Documented by: SALIMA Dextrose (Dextrose 50 % 25 Gm/50 Ml Vial) 25 gm IVPUSH Q15M PRN; Protocol PRN Reason: per Hypoglycemia Standing Ord. Glucose (Glucose Gel 15 Gm Gel..Gram.) 15 gm PO Q15M PRN; Protocol PRN Reason: per Hypoglycemia Standing Ord. Ibuprofen (Ibuprofen 800 Mg Tablet) 800 mg PO TIDWM [facility] Last Admin: 09/19/21 08:06 Dose: 800 mg Documented by: SALIMA Insulin Human Lispro (Insulin Lispro 100 Unit/Ml 3 Ml Vial) 0 unit SUBCUT QIDAC [facility]; Protocol Last Admin: 09/19/21 11:50 Dose: 8 unit Documented by: SALIMA Lisinopril (Lisinopril 40 Mg Tablet) 40 mg PO DAILY [facility]; Protocol Last Admin: 09/19/21 08:06 Dose: 40 mg Documented by: SALIMA Melatonin (Melatonin 3 Mg Tablet) 6 mg PO BEDTIME PRN PRN Reason: Insomnia Methylprednisolone Sodium Succinate (Methylprednisolone Sod Succ 125 Mg/2 Ml Vial) 60 mg IVPUSH Q6H [facility] Last Admin: 09/19/21 12:17 Dose: 60 mg Documented by: SALIMA Metoprolol Succinate (Metoprolol Succinate Er 100 Mg Tab.Er.24h) 200 mg PO DAILY [facility]; Protocol Last Admin: 09/19/21 08:07 Dose: 200 mg Documented by: SALIMA Pt Own Med ( Netarsudil- Latanoprost [ Rocklatan] 0.02-0. 005 % Drops) 1 each EYE-BOTH BEDTIME [facility] Last Admin: 09/18/21 21:35 Dose: 1 each Documented by: MAURY Omeprazole (Omeprazole 20 Mg Capsule.Dr) 20 mg PO BID@9030,2480 [facility] Last Admin: 09/19/21 05:12 Dose: 20 mg Documented by: MAURY Pharmacy Consult (Consult Rx Perform Med Rec) 1 each MISCELLANE ONCE PRN PRN Reason: Consult order Rivaroxaban (Rivaroxaban 20 Mg Tablet) 20 mg PO DAILY [facility] Last Admin: 09/19/21 08:07 Dose: 20 mg Documented by: SALIMA Senna (Sennosides 8.6 Mg Tablet) 17.2 mg PO BEDTIME PRN PRN Reason: Constipation Sodium Chloride (0.9 % Sodium Chloride Flush 3 Ml Syringe) 3 ml IVFLUSH QSHIFT [facility] Last Admin: 09/19/21 08:06 Dose: 3 ml Documented by: SALIMA Timolol Maleate (Timolol Maleate 0.5 % Oph Madina 5 Ml Drbtl) 1 drop EYE-BOTH DAILY [facility] Last Admin: 09/19/21 08:10 Dose: 1 drop Documented by: SALIMA Verapamil HCl (Verapamil Hcl Sr 180 Mg Tablet.Er) 180 mg PO DAILY [facility]; Protocol Last Admin: 09/19/21 08:07 Dose: 180 mg Documented by: SALIMA Labs CBC & Chem 7: 09/18/21 05:32 09/18/21 05:32 Labs: Laboratory Results - last 24 hr 09/17/21 09/18/21 09/18/21 07:23 16:56 20:42 POC Glucose 190 H 210 H Lyme Screen IgG & IgM <0.90 09/19/21 09/19/21 07:32 11:15 POC Glucose 227 H 341 H Lyme Screen IgG & IgM Microbiology Microbiology Results: Microbiology 09/16/21 20:02 Blood Culture - Preliminary Blood - Venous No growth after 48 hours. 09/16/21 19:45 Blood Culture - Preliminary Blood - Venous No growth after 48 hours. 09/16/21 19:31 Urine Culture - Final Urine clean catch - Urine chavez top No growth. Assessment and Plan (1) Polyarthralgia: Status: Acute (2) Elevated sed rate: Status: Acute (3) HTN (hypertension): Status: Acute Assessment and Plan: 71-year-old male with a past medical history of hypertension, , hyperlipidemia, diabetes,chronic AFib on Xarelto, presented to the hospital today with a chief complaint of severe joint pains diffusel after having flu-like symptoms 2-3 days post vaccination for flu? 1.Polyarthralgia.? Elevated CRP and ESR, likely inflammatory in nature Negative serology including Lyme; normal white count Will treat with IV steroids...follow response in am 2.Hypertension.? Continue lisinopril, metoprolol 3.Diabetes mellitus Sliding scale, ADA diet Adjust as indicated 4.Paroxysmal AFib Rate controlled.? Continue home Xarelto DVT prophylaxis:? Patient on Xarelto Code status: Full code Quality Stroke Does the patient have a stroke diagnosis?: No VTE Prior VTE?: No VTE Risk Level:: Medical - moderate - high VTE Device Contraindication: Treatment Not Indicated VTE Drug Contraindication: N/A - Med Ordered
--- NOTE | 2021-09-19 14:04 | MHC.CM.PN ---
IF PATIENT NEEDS TO SEE [employer] FOR FOLLOW UP PLEASE FAX DC SUMMARY AND FACE SHEET TO DR NICOLE COLLIER OFFICE [phone] (OFFICE NUMBER IS [phone]) OFFICE WILL REVIEW AND CONTACT THE PATIENT TO SCHEDULE A VISIT. OFFICE CONFIRMED WITH THIS [employer] THAT THEY DO ACCEPT HIS INSURANCE PLAN.
[2021-09-19 16:25] LABS: Glucose, Whole Blood 267 mg/dL (60-115)
[2021-09-19] MEDS: Atorvastatin Calcium 10 MG TABLET PO (20:13)
[2021-09-19] MEDS: Melatonin 3 MG TABLET 6 MG PO (20:15)
[2021-09-19 20:22] LABS: Glucose, Whole Blood 349 mg/dL (60-115)
[2021-09-20] VITALS (8 sets, daily range): BP systolic 110–145; BP diastolic 73–93; PULSE 80–108; RESP 16–18; TEMP 35.8–36.6; O2SAT 97–98
[2021-09-20] MEDS: methylPREDNISolone Sod Succ 125 MG/2 ML VIAL 60 MG IVPUSH ×4 (00:48→17:25)
[2021-09-20 01:53] LABS: Hepatitis B Core Antibody IgM NON-REACTIVE (NON-REACTIVE)
[2021-09-20] MEDS: Acetaminophen 325 MG TABLET 650 MG PO ×3 (05:30→19:31)
[2021-09-20] MEDS: Omeprazole 20 MG CAPSULE.DR PO ×2 (05:31→17:25)
[2021-09-20 05:48] LABS: Basophils Percent Auto 0.1 % (0-2); Hematocrit 34.5 % (42.0-52.0); Hemoglobin 11.8 g/dl (14.0-18.0); Imm Gran Abs Auto 0.06 X10*3/uL (0.00-0.03); Imm Gran Pct Auto 0.6 % (0.0-0.4); Lymphocytes Absolute Auto 0.4 X10*3/uL (1.2-4.9); MANUAL DIFF FLAG SCAN; Mean Corpuscular HGB Conc 34.2 g/dl (31.0-36.0); Mean Corpuscular Hemoglobin 31.7 pg (27.0-33.0); Mean Corpuscular Volume 92.7 fL (80.0-98.0); Mean Platelet Volume 10.5 fL (9.4-12.4); Monocytes Absolute Auto 0.3 X10*3/uL (0.1-1.2); Monocytes Percent Auto 3.1 % (2-11); Neutrophils Absolute Auto 9.7 x10*3/uL (2.0-8.3); Neutrophils Percent Auto 92.2 % (45-73); Platelet Count 330 X10*3/uL (160-400); Red Blood Count 3.72 X10*6/uL (4.60-5.80); Red Cell Distribution Width 11.7 % (11.0-16.0); SCAN SMEAR FLAG 1; White Blood Count 10.5 X10*3/uL (4.8-10.8)
[2021-09-20 06:20] LABS: SLIDE REVIEW VERIFIED
[2021-09-20 06:36] LABS: Alanine Aminotransferase 133 U/L (0-40); Albumin Level 3.2 g/dL (3.5-5.0); Alkaline Phosphatase 104 U/L (39-117); Anion Gap 17 (12-20); Aspartate Amino Transferase 86 U/L (5-37); Bilirubin Total 1.5 mg/dL (0.0-1.0); Blood Urea Nitrogen 46 mg/dL (9-16); Calcium 8.7 mg/dL (8.4-10.2); Carbon Dioxide 24 mmol/L (22-29); Chloride 94 mmol/L (96-108); Creatinine Clr Calc Pharmacy 49.4; Estimated Glomerular Filt Rate 45; Glucose Fasting 378 mg/dL (60-99); Potassium 4.1 mmol/L (3.3-5.1); Sodium 131 mmol/L (135-145); Total Protein 6.4 g/dL (6.5-8.0)
[2021-09-20] MEDS: Insulin Lispro 100 UNIT/ML 3 ML VIAL SUBCUT ×5 (06:43→21:45)
[2021-09-20 06:48] LABS: Glucose, Whole Blood 346 mg/dL (60-115)
--- NOTE | 2021-09-20 07:15 | PC.NURSE ---
Lab called for a critical fasting glucose =378, Dr. Davis was notified, and said to cover with SS , Lispro 10 units SC given, cereal and milk provided.
[2021-09-20 07:18] LABS: Glucose, Whole Blood 367 mg/dL (60-115)
[2021-09-20] MEDS: Metoprolol Succinate ER 100 MG TAB.ER.24H 200 MG PO (08:14)
[2021-09-20] MEDS: VerapamiL HCL SR 180 MG TABLET.ER PO (08:14)
[2021-09-20] MEDS: lisinopriL 40 MG TABLET PO (08:15)
[2021-09-20] MEDS: 0.9 % Sodium Chloride Flush 3 ML SYRINGE IVFLUSH ×2 (08:15→17:25)
[2021-09-20] MEDS: Rivaroxaban 20 MG TABLET PO (08:15)
[2021-09-20] MEDS: timoloL maleate 0.5 % Oph Sol 5 ML DRBTL 1 DROP EYE-BOTH (08:17)
[2021-09-20] MEDS: Brimonidine Tartrate 0.2% Oph 5 ML BOTTLE 1 DROP EYE-BOTH ×2 (08:17→21:45)
[2021-09-20 10:42] LABS: Anti Nuclear Antibody Screen NEGATIVE (NEGATIVE)
[2021-09-20 11:32] LABS: Glucose, Whole Blood 436 mg/dL (60-115)
--- NOTE | 2021-09-20 11:41 | PC.NURSE ---
Patient POC blood glucose at 11:30 was 436, Dr. Cuevas made aware. Per Dr. Cuevas SSI will be given, 10 units. Will continue to monitor blood glucoses.
--- NOTE | 2021-09-20 14:34 | MHC.CM.PN ---
Addendum entered by Shabana Kathleen 09/20/21 15:42: PTS PRESENTED WITH PTS [employer] MEDICARE CARD. COPY SCANNED INTO [employer] AND PLACED IN CHART Original Note: PER MD ROUNDS, PT LIKELY TO DC Thursday09/21/21. MD AWARE PT WILL NEED RX FOR WALKER
--- NOTE | 2021-09-20 14:49 | P.PNIM_ITS ---
Subjective Subjective Date of Service: 09/20/21 Interval History: markedly improved with steroids; able to walk in hallway with walker Review of Systems denies chest pain Denies shortness of breath Denies nausea vomiting diarrhea Physical Exam Vital Signs: Vital Signs: Last Vital Signs Temp 97.4 F 09/20/21 11:20 Pulse 80 09/20/21 11:20 Resp 18 09/20/21 11:20 BP 110/73 09/20/21 11:20 Pulse Ox 97 09/20/21 11:20 BMI result Body Mass Index 34.2 Const: Other: awake alert no acute distress uncomfortable secondary to pain Resp: Other: clear to auscultation bilaterally Cardio: Other: no S4; positive S1-S2; GI: Other: soft nontender nondistended with normoactive bowel sounds. No peritoneal signs Neuro: Other: cranial nerves 2-12 grossly intact as tested. Motor is 5/5 all extremities. Sensation intact. Cognition appropriate Extrem: Other: mild effusion D IP joints bilateral hands. Bilateral ankles with edema/effusion Objective Data Active Medications Acetaminophen (Acetaminophen 325 Mg Tablet) 650 mg PO Q6H PRN PRN Reason: Pain, Mild (Pain Scale 1-3) Last Admin: 09/20/21 11:59 Dose: 650 mg Documented by: NICANOREMA Atorvastatin Calcium (Atorvastatin Calcium 10 Mg Tablet) 10 mg PO BEDTIME [facility] Last Admin: 09/19/21 20:13 Dose: 10 mg Documented by: CASTILM Brimonidine Tartrate (Brimonidine Tartrate 0.2% Oph 5 Ml Bottle) 1 drop EYE- BOTH BID [facility] Last Admin: 09/20/21 08:17 Dose: 1 drop Documented by: BONNIE Dextrose (Dextrose 50 % 25 Gm/50 Ml Vial) 25 gm IVPUSH Q15M PRN; Protocol PRN Reason: per Hypoglycemia Standing Ord. Glucose (Glucose Gel 15 Gm Gel..Gram.) 15 gm PO Q15M PRN; Protocol PRN Reason: per Hypoglycemia Standing Ord. Ibuprofen (Ibuprofen 800 Mg Tablet) 800 mg PO TIDWM [facility] Last Admin: 09/20/21 10:47 Dose: Not Given Documented by: COTEMA Non-Admin Reason: Physician Held Med Insulin Human Lispro (Insulin Lispro 100 Unit/Ml 3 Ml Vial) 0 unit SUBCUT QIDACHS [facility]; Protocol Last Admin: 09/20/21 11:59 Dose: 10 unit Documented by: BONNIE Lisinopril (Lisinopril 40 Mg Tablet) 40 mg PO DAILY [facility]; Protocol Last Admin: 09/20/21 08:15 Dose: 40 mg Documented by: BONNIE Melatonin (Melatonin 3 Mg Tablet) 6 mg PO BEDTIME PRN PRN Reason: Insomnia Last Admin: 09/19/21 20:15 Dose: 6 mg Documented by: SKYLAR Methylprednisolone Sodium Succinate (Methylprednisolone Sod Succ 125 Mg/2 Ml Vial) 60 mg IVPUSH Q6H [facility] Last Admin: 09/20/21 11:59 Dose: 60 mg Documented by: BONNIE Metoprolol Succinate (Metoprolol Succinate Er 100 Mg Tab.Er.24h) 200 mg PO DAILY [facility]; Protocol Last Admin: 09/20/21 08:14 Dose: 200 mg Documented by: BONNIE Pt Own Med ( Netarsudil- Latanoprost [ Rocklatan] 0.02-0. 005 % Drops) 1 each EYE-BOTH BEDTIME [facility] Last Admin: 09/19/21 22:29 Dose: 1 each Documented by: SKYLAR Omeprazole (Omeprazole 20 Mg Capsule.Dr) 20 mg PO BID@0630,1630 [facility] Last Admin: 09/20/21 05:31 Dose: 20 mg Documented by: SKYLAR Pharmacy Consult (Consult Rx Perform Med Rec) 1 each MISCELLANE ONCE PRN PRN Reason: Consult order Rivaroxaban (Rivaroxaban 20 Mg Tablet) 20 mg PO DAILY [facility] Last Admin: 09/20/21 08:15 Dose: 20 mg Documented by: BONNIE Senna (Sennosides 8.6 Mg Tablet) 17.2 mg PO BEDTIME PRN PRN Reason: Constipation Sodium Chloride (0.9 % Sodium Chloride Flush 3 Ml Syringe) 3 ml IVFLUSH QSHIFT [facility] Last Admin: 09/20/21 08:15 Dose: 3 ml Documented by: BONNIE Timolol Maleate (Timolol Maleate 0.5 % Oph Madina 5 Ml Drbtl) 1 drop EYE-BOTH DAILY [facility] Last Admin: 09/20/21 08:17 Dose: 1 drop Documented by: BONNIE Verapamil HCl (Verapamil Hcl Sr 180 Mg Tablet.Er) 180 mg PO DAILY [facility]; Protocol Last Admin: 09/20/21 08:14 Dose: 180 mg Documented by: BONNIE Labs CBC & Chem 7: 09/20/21 05:29 09/20/21 05:29 Labs: Laboratory Results - last 24 hr 09/16/21 09/17/21 09/19/21 23:24 14:22 15:58 MCV MCH MCHC RDW Plt Count MPV Immature Gran % (Auto) Neut % (Auto) Lymph % (Auto) [place] % (Auto) Eos % (Auto) Baso % (Auto) Lymph # (Auto) [place] # (Auto) Eos # (Auto) Baso # (Auto) Abs Immat Gran (auto) Absolute Neuts (auto) Absolute Nucleated RBC Nucleated RBC % (auto) Smear Tech's Comments Anion Gap Estim Creat Clear Calc Estimated GFR POC Glucose 267 H Fasting Glucose Calcium Total Bilirubin AST ALT Alkaline Phosphatase Total Protein Albumin ALYSSA Screen NEGATIVE ALYSSA Titer TNP ALYSSA Titer 2 TNP ALYSSA Titer 3 TNP ALYSSA Pattern TNP ALYSSA Pattern 2 TNP ALYSSA Pattern 3 TNP Hep B Core IgM Ab NON-REACTIVE 09/19/21 09/20/21 09/20/21 19:51 05:29 05:29 MCV 92.7 MCH 31.7 MCHC 34.2 RDW 11.7 Plt Count 330 MPV 10.5 Immature Gran % (Auto) 0.6 H Neut % (Auto) 92.2 H Lymph % (Auto) 4.0 L [place] % (Auto) 3.1 Eos % (Auto) 0.0 Baso % (Auto) 0.1 Lymph # (Auto) 0.4 L [place] # (Auto) 0.3 Eos # (Auto) 0.0 Baso # (Auto) 0.0 Abs Immat Gran (auto) 0.06 H Absolute Neuts (auto) 9.7 H Absolute Nucleated RBC 0.000 Nucleated RBC % (auto) 0.0 Smear Tech's Comments VERIFIED Anion Gap 17 Estim Creat Clear Calc 49.4 Estimated GFR 45 POC Glucose 349 H Fasting Glucose 378 H* D Calcium 8.7 Total Bilirubin 1.5 H AST 86 H ALT 133 H Alkaline Phosphatase 104 D Total Protein 6.4 L Albumin 3.2 L ALYSSA Screen ALYSSA Titer ALYSSA Titer 2 ALYSSA Titer 3 ALYSSA Pattern ALYSSA Pattern 2 ALYSSA Pattern 3 Hep B Core IgM Ab 09/20/21 09/20/2109/20/21 06:43 07:05 11:25 MCV MCH MCHC RDW Plt Count MPV Immature Gran % (Auto) Neut % (Auto) Lymph % (Auto) [place] % (Auto) Eos % (Auto) Baso % (Auto) Lymph # (Auto) [place] # (Auto) Eos # (Auto) Baso # (Auto) Abs Immat Gran (auto) Absolute Neuts (auto) Absolute Nucleated RBC Nucleated RBC % (auto) Smear Tech's Comments Anion Gap Estim Creat Clear Calc Estimated GFR POC Glucose 346 H 367 H* 436 H* Fasting Glucose Calcium Total Bilirubin AST ALT Alkaline Phosphatase Total Protein Albumin ALYSSA Screen ALYSSA Titer ALYSSA Titer 2 ALYSSA Titer 3 ALYSSA Pattern ALYSSA Pattern 2 ALYSSA Pattern 3 Hep B Core IgM Ab Assessment and Plan (1) Polyarthralgia: Status: Acute (2) HTN (hypertension): Status: Acute (3) DMII (diabetes mellitus, type 2): Status: Acute Assessment and Plan: 71-year-old male with a past medical history of hypertension, , hyperlipidemia, diabetes,chronic AFib on Xarelto, presented to the hospital today with a chief complaint of severe joint pains diffusel after having flu-like symptoms 2-3 days post vaccination for flu?; good response to IV Solu-Medrol 1.Polyarthralgia.? Elevated CRP and ESR, likely inflammatory in nature Negative serology including Lyme; normal white count Good response to IV steroids...additional 24hrs. 2.Hypertension.? Continue lisinopril, metoprolol 3.Diabetes mellitus Elevated secondary to steroids Sliding scale, ADA diet Adjust as indicated 4.Paroxysmal AFib Rate controlled.? Continue home Xarelto 5.Transaminitis Hx of same...at baseline DVT prophylaxis:? Patient on Xarelto Code status: Full code Quality Stroke Does the patient have a stroke diagnosis?: No VTE Prior VTE?: No VTE Risk Level:: Medical - moderate - high VTE Device Contraindication: Treatment Not Indicated VTE Drug Contraindication: N/A - Med Ordered
[2021-09-20 15:38] LABS: Glucose, Whole Blood 421 mg/dL (60-115)
[2021-09-20 20:07] LABS: Glucose, Whole Blood 428 mg/dL (60-115)
[2021-09-20] MEDS: Atorvastatin Calcium 10 MG TABLET PO (21:45)
[2021-09-20] MEDS: Melatonin 3 MG TABLET 6 MG PO (21:49)
[2021-09-21] VITALS: BP 126/72; PULSE 96; RESP 16; TEMP 36.5; O2SAT 97
[2021-09-21] MEDS: methylPREDNISolone Sod Succ 125 MG/2 ML VIAL 60 MG IVPUSH ×3 (01:11→11:59)
[2021-09-21] MEDS: 0.9 % Sodium Chloride Flush 3 ML SYRINGE IVFLUSH ×2 (01:11→07:37)
[2021-09-21 04:00] VITALS: BP 162/91; PULSE 102; RESP 16; TEMP 36.6; O2SAT 98
[2021-09-21 05:51] LABS: Hematocrit 33.4 % (42.0-52.0); Hemoglobin 11.3 g/dl (14.0-18.0); Lymphocytes Absolute Auto 0.3 X10*3/uL (1.2-4.9); Lymphocytes Percent Auto 3.3 % (20-40); MANUAL DIFF FLAG SCAN; Mean Corpuscular HGB Conc 33.8 g/dl (31.0-36.0); Mean Corpuscular Hemoglobin 31.6 pg (27.0-33.0); Mean Corpuscular Volume 93.3 fL (80.0-98.0); Mean Platelet Volume 10.7 fL (9.4-12.4); Monocytes Absolute Auto 0.3 X10*3/uL (0.1-1.2); Monocytes Percent Auto 2.7 % (2-11); Neutrophils Absolute Auto 9.2 x10*3/uL (2.0-8.3); Platelet Count 349 X10*3/uL (160-400); Red Blood Count 3.58 X10*6/uL (4.60-5.80); Red Cell Distribution Width 11.8 % (11.0-16.0); SCAN SMEAR FLAG 1; White Blood Count 9.9 X10*3/uL (4.8-10.8)
[2021-09-21] MEDS: Omeprazole 20 MG CAPSULE.DR PO (05:58)
[2021-09-21 06:11] LABS: Alanine Aminotransferase 91 U/L (0-40); Alkaline Phosphatase 80 U/L (39-117); Anion Gap 13 (12-20); Aspartate Amino Transferase 32 U/L (5-37); Bilirubin Total 0.8 mg/dL (0.0-1.0); Blood Urea Nitrogen 54 mg/dL (9-16); Calcium 8.5 mg/dL (8.4-10.2); Carbon Dioxide 27 mmol/L (22-29); Chloride 96 mmol/L (96-108); Creatinine Clr Calc Pharmacy 51.4; Estimated Glomerular Filt Rate 47; Potassium 4.1 mmol/L (3.3-5.1); Sodium 132 mmol/L (135-145); Total Protein 5.9 g/dL (6.5-8.0)
[2021-09-21 06:14] LABS: Glucose Fasting 447 mg/dL (60-99)
[2021-09-21 06:16] LABS: SLIDE REVIEW VERIFIED
[2021-09-21 07:20] VITALS: BP 136/94; PULSE 102; RESP 17; TEMP 36.6; O2SAT 97
[2021-09-21] MEDS: Metoprolol Succinate ER 100 MG TAB.ER.24H 200 MG PO (07:37)
[2021-09-21] MEDS: Ibuprofen 800 MG TABLET PO (07:37)
[2021-09-21] MEDS: VerapamiL HCL SR 180 MG TABLET.ER PO (07:37)
[2021-09-21] MEDS: Insulin Lispro 100 UNIT/ML 3 ML VIAL SUBCUT ×2 (07:38→11:59)
[2021-09-21] MEDS: lisinopriL 40 MG TABLET PO (07:38)
[2021-09-21 07:39] LABS: Glucose, Whole Blood 399 mg/dL (60-115)
[2021-09-21] MEDS: Brimonidine Tartrate 0.2% Oph 5 ML BOTTLE 1 DROP EYE-BOTH (07:40)
[2021-09-21] MEDS: timoloL maleate 0.5 % Oph Sol 5 ML DRBTL 1 DROP EYE-BOTH (07:42)
[2021-09-21] MEDS: Rivaroxaban 20 MG TABLET PO (09:29)
--- NOTE | 2021-09-21 11:34 | PM.DS ---
DS: Providers Provider Date of Service: 09/21/21 Date of admission: 09/16/21 21:14 Date of discharge: 09/21/21 Primary care physician: Rodney Powell MD, DO DS: Diagnosis Discharge Diagnosis (1) Polyarthralgia: Status: Acute (2) HTN (hypertension): Status: Acute (3) DMII (diabetes mellitus, type 2): Status: Acute DS: Summary Hospital Course Hospital Course: 71-year-old male admitted 09/16/2021 with complaints of diffuse joint aches and swellings. He states these began within a week after receiving the flu shot. They began mild but as time progressed they became more incapacitated.The date of admission, he had extreme difficulty ambulating and presented to the ER. In the ER workup was significant for a CRP of 24 and ESR of 86. He was admitted and more extensive lab work done including hepatitis panel, Lyme titers; ALYSSA pending. Thus far all serologies negative. On 09/19/2021, he was started on pulse dose Solu-Medrol. Within the next 24-48 hours if dramatic improvement which began is ability to ambulate with walker to independent. Patient is requesting discharge and is medically stable to do so. Given steroid use, sugars were poorly controlled. Upon discharge he was advised to increase his glipizide to b.i.d. and call his primary physician for further guidance. Discharge planning will arrange rheumatology consultation the arthritis treatment center; he will be discharged on a course of tapering prednisone follow-up with PCP Time Spent with Patient Time attestation: Total time spent providing and/or coordinating discharge services: Discharge coordination time: Greater than 30 minutes Quality: Stroke Does the patient have a stroke diagnosis?: No Physical Exam Vital Signs: Vital Signs: Last Vital Signs Temp 97.8 F 09/21/21 07:20 Pulse 102 H 09/21/21 07:20 Resp 17 09/21/21 07:20 BP 136/94 H 09/21/21 07:20 Pulse Ox 97 09/21/21 07:20 BMI result Body Mass Index 34.2 Const: Other: awake alert no acute distress uncomfortable secondary to pain Resp: Other: clear to auscultation bilaterally Cardio: Other: no S4; positive S1-S2; GI: Other: soft nontender nondistended with normoactive bowel sounds. No peritoneal signs Neuro: Other: cranial nerves 2-12 grossly intact as tested. Motor is 5/5 all extremities. Sensation intact. Cognition appropriate Extrem: Other: mild effusion D IP joints bilateral hands. Bilateral ankles with edema/effusion DS: Data Data Completed and Pending Labs on day of discharge: Laboratory Results - last 24 hr 09/16/21 09/20/21 09/20/21 23:24 15:33 19:50 WBC RBC Hgb Hct MCV MCH MCHC RDW Plt Count MPV Immature Gran % (Auto) Neut % (Auto) Lymph % (Auto) [place] % (Auto) Eos % (Auto) Baso % (Auto) Lymph # (Auto) [place] # (Auto) Eos # (Auto) Baso # (Auto) Abs Immat Gran (auto) Absolute Neuts (auto) Absolute Nucleated RBC Nucleated RBC % (auto) Smear Tech's Comments Sodium Potassium Chloride Carbon Dioxide Anion Gap BUN Creatinine Estim Creat Clear Calc Estimated GFR POC Glucose 421 H* 428 H* Fasting Glucose Calcium Total Bilirubin AST ALT Alkaline Phosphatase Total Protein Albumin ALYSSA Titer TNP ALYSSA Titer 2 TNP ALYSSA Titer 3 TNP ALYSSA Pattern TNP ALYSSA Pattern 2 TNP ALYSSA Pattern 3 TNP 09/21/21 09/21/21 09/21/21 05:37 05:37 07:16 WBC 9.9 RBC 3.58 L Hgb 11.3 L Hct 33.4 L MCV 93.3 MCH 31.6 MCHC 33.8 RDW 11.8 Plt Count 349 MPV 10.7 Immature Gran % (Auto) 1.0 H Neut % (Auto) 93.0 H Lymph % (Auto) 3.3 L [place] % (Auto) 2.7 Eos % (Auto) 0.0 Baso % (Auto) 0.0 Lymph # (Auto) 0.3 L [place] # (Auto) 0.3 Eos # (Auto) 0.0 Baso # (Auto) 0.0 Abs Immat Gran (auto) 0.10 H Absolute Neuts (auto) 9.2 H Absolute Nucleated RBC 0.000 Nucleated RBC % (auto) 0.0 Smear Tech's Comments VERIFIED Sodium 132 L Potassium 4.1 Chloride 96 Carbon Dioxide 27 Anion Gap 13 BUN 54 H Creatinine 1.48 H Estim Creat Clear Calc 51.4 Estimated GFR 47 POC Glucose 399 H* Fasting Glucose 447 H* Calcium 8.5 Total Bilirubin 0.8 AST 32 D ALT 91 H Alkaline Phosphatase 80 D Total Protein 5.9 L Albumin 3.0 L ALYSSA Titer ALYSSA Titer 2 ALYSSA Titer 3 ALYSSA Pattern ALYSSA Pattern 2 ALYSSA Pattern 3 Preliminary micro results at discharge 09/16/21 20:02 Blood Culture - Preliminary Blood - Venous No growth after 48 hours. 09/16/21 19:45 Blood Culture - Preliminary Blood - Venous No growth after 48 hours. Discharge Plan Discharge Patient Disposition: Home, Self-Care Discharge Diagnosis: reactive arthritis Referrals: Rodney Powell MD, DO [Primary Care Provider] - 1 Week Discharge Medications: New tramadol 50 mg tablet 50 mg PO TID PRN (Reason: pain) Qty: 30 RF: 0 prednisone 10 mg tablet See Rx Instructions .Route .COMPLEX Qty: 45 RF: 0 Continued metoprolol succinate 200 mg tablet extended release 24 hr 200 mg PO DAILY Qty: 90 RF: 3 verapamil 180 mg capsule,ext rel. pellets 24 hr 180 mg PO DAILY Qty: 90 RF: 3 rivaroxaban 20 mg tablet 20 mg PO DAILY Qty: 90 RF: 3 timolol maleate 0.5 % drops 1 drp ophthalmic (eye) QAM RF: 0 Rocklatan 0.02-0.005 % drops 1 drp ophthalmic (eye) BEDTIME RF: 0 pantoprazole 40 mg tablet,delayed release (DR/EC) 40 mg PO DAILY RF: 0 lisinopril 40 mg tablet 40 mg PO DAILY RF: 0 simvastatin 10 mg tablet 10 mg PO BEDTIME RF: 0 brimonidine 0.2 % drops 1 drp ophthalmic (eye) BID RF: 0 hydrochlorothiazide 50 mg tablet 50 mg PO DAILY RF: 0 metformin 750 mg tablet extended release 24 hr 2,250 mg PO BEDTIME RF: 0 Changed glipizide 5 mg tablet 5 mg PO BIDWMEAL Qty: 60 RF: 0 Discharge Orders: Discharge Order (Routine); Ordered 09/21/21 Ordered By: Shaun Cuevas Diet: advance to usual diet Activity on Discharge: As tolerated Stand Alone Forms: Patient Portal Discharge page Care Plan Goals: follow-up with rheumatology and PCP as scheduled Health Concerns: will increase glipizide to b.i.d. and follow-up with PCP Plan of Treatment: prednisone taper Assessment: improved
[2021-09-21 11:43] LABS: Glucose, Whole Blood 494 mg/dL (60-115)
--- NOTE | 2021-09-21 11:49 | MHC.CM.PN ---
Addendum entered by Vale Joseph 09/21/21 11:52: CORRECTION: IMM 09/19 IN CHART Original Note: PATIENT IS DISCHARGED HOME - SELF CARE. DC SUMMARY, FACE SHEET, AND COVID RESULTS FAXED TO [facility] (ATT: DOCTOR NICOLE COLLIER) @ [phone] PATIENT AND AWARE THAT SERVICE WILL CONTACT PATIENT DURING UP-COMING WEEK. PHONE NUMBER FOR ATC IS ALSO IN DC INSTRUCTIONS. IMM 08/20 IN CHART
[2021-09-21 12:00] VITALS: BP 109/74; PULSE 86; RESP 18; TEMP 36.6; O2SAT 97
[2021-09-21] MEDS: Acetaminophen 325 MG TABLET 650 MG PO (12:04)
[2021-09-22 21:42] LABS: Parvovirus B19 IgG 7.56; Parvovirus B19 IgM <0.9
== END 2021-09-21 13:30 | disposition home or self-care (01) | DRG 546 ==
LOC: HO.ED 20:43 → HO.EDOVER 09-17 07:30 → HO.S3 09-18 14:38
PROVIDERS: Nurse Practitioner Acute Care; Admitting Provider Hospitalist; Emergency Provider Emergency Medicine; PCP Internal Medicine; Visit Provider Hospitalist
DX: M02.30 Reiter's disease, unspecified site (principal); I48.20 Chronic atrial fibrillation, unspecified; E78.5 Hyperlipidemia, unspecified; E87.6 Hypokalemia; I10 Essential (primary) hypertension; H40.9 Unspecified glaucoma; Z20.822 Contact with and (suspected) exposure to COVID-19; Z87.891 Personal history of nicotine dependence; Z79.01 Long term (current) use of anticoagulants; Z79.84 Long term (current) use of oral hypoglycemic drugs; Z79.899 Other long term (current) drug therapy
CPT/HCPCS: 0241U; 36415; 71046; 80048; 80053; 80076; 81003; 82947; 83605; 83880; 85025; 85027; 85652; 86038; 86039; 86140; 86617; 86618; 86704; 86705; 86706; 86709; 86747; 86803; 87040; 87086; 87340; 87389; 93005; 96374; 97110; 97116; 97162; 99218; 99285; J1885; J2930

== ENCOUNTER 2021-09-30 14:25 | Outpatient (REF) | payer MEDICARE, SELFPAY ==
[2021-09-30 16:49] LABS: Basophils Percent Auto 0.1 % (0-2); Eosinophils Percent Auto 0.1 % (0-4); Hematocrit 39.9 % (42.0-52.0); Hemoglobin 13.4 g/dl (14.0-18.0); Imm Gran Abs Auto 0.16 X10*3/uL (0.00-0.03); Lymphocytes Absolute Auto 0.7 X10*3/uL (1.2-4.9); Lymphocytes Percent Auto 4.6 % (20-40); MANUAL DIFF FLAG SCAN; Mean Corpuscular HGB Conc 33.6 g/dl (31.0-36.0); Mean Corpuscular Hemoglobin 31.3 pg (27.0-33.0); Mean Corpuscular Volume 93.2 fL (80.0-98.0); Mean Platelet Volume 10.9 fL (9.4-12.4); Monocytes Absolute Auto 0.4 X10*3/uL (0.1-1.2); Monocytes Percent Auto 2.3 % (2-11); Neutrophils Absolute Auto 14.2 x10*3/uL (2.0-8.3); Neutrophils Percent Auto 91.9 % (45-73); Platelet Count 346 X10*3/uL (160-400); Red Blood Count 4.28 X10*6/uL (4.60-5.80); Red Cell Distribution Width 12.3 % (11.0-16.0); SCAN SMEAR FLAG 1; White Blood Count 15.5 X10*3/uL (4.8-10.8)
[2021-09-30 16:54] LABS: Estimated Average Glucose 166 mg/dL; Hemoglobin A1c % 7.4 %
[2021-09-30 17:08] LABS: Appearance Urine CLEAR; Color Urine YELLOW; Creatinine Urine 127.01 mg/dL; Glucose Urine UA NEG (NEG); Leukocyte Esterase Urine NEG (NEG); Nitrite Urine NEG (NEG); Urine Blood NEG (NEG); Urine Ketones NEG (NEG); Urine Protein NEG (NEG-TRACE)
[2021-09-30 17:11] LABS: Estimated Glomerular Filt Rate 50; Rheumatoid Factor < 15.0 IU/mL (<15.0); Uric Acid 8.1 mg/dL (3.4-7.0)
[2021-09-30 17:15] LABS: Alanine Aminotransferase 71 U/L (0-40); Albumin Level 3.6 g/dL (3.5-5.0); Alkaline Phosphatase 60 U/L (39-117); Anion Gap 16 (12-20); Aspartate Amino Transferase 46 U/L (5-37); Bilirubin Direct 0.7 mg/dL (0.0-0.5); Bilirubin Total 1.4 mg/dL (0.0-1.0); Blood Urea Nitrogen 30 mg/dL (9-16); Calcium 9.1 mg/dL (8.4-10.2); Carbon Dioxide 29 mmol/L (22-29); Chloride 95 mmol/L (96-108); Glucose Random 283 mg/dL (60-115); Potassium 4.6 mmol/L (3.3-5.1); Sodium 135 mmol/L (135-145); Total Protein 6.6 g/dL (6.5-8.0)
[2021-09-30 17:25] LABS: PSA,Total (Free>4and<10) 14.87 ng/mL (0.00-4.00); Thyroid Stimulating Hormone 1.36 uIU/mL (0.32-4.0)
[2021-09-30 17:36] LABS: SLIDE REVIEW VERIFIED
[2021-09-30 17:40] LABS: Erythrocyte Sedimentation Rate 34 MM/HR (0-15)
[2021-09-30 18:11] LABS: RBC Urine 0 /HPF (0); WBC Urine 0 /HPF (0-4)
== END 2021-09-30 14:26 | disposition home or self-care (01) ==
LOC: HO.HMGCLDS 14:25
PROVIDERS: PCP Internal Medicine; Visit Provider Internal Medicine
DX: M25.50 Pain in unspecified joint (principal); E11.9 Type 2 diabetes mellitus without complications; I48.20 Chronic atrial fibrillation, unspecified; I10 Essential (primary) hypertension; K22.70 Barrett's esophagus without dysplasia; R97.20 Elevated prostate specific antigen [PSA]
CPT/HCPCS: 36415; 80053; 81001; 82043; 82248; 83036; 84153; 84443; 84550; 85025; 85652; 86140; 86431

== ENCOUNTER → 2021-12-11 13:51 | Outpatient (REF) | payer MEDICARE, SELFPAY ==
--- NOTE | 2021-12-11 13:55 | CA_ITS ---
Transthoracic Echocardiogram Patient (Last, First, Middle): Gagan Ponce F Gender: Male Date of : 1950 Age: 71 Procedure Date: 12/11/2021 Procedure Type: Transthoracic Echocardiogram Location: OP Height: 175.26 cm Weight: 95.26 kg BSA: 2.11 m2 Heart Rate: bpm BP: 128 / 80 mmHg Chicken Cutter: Referring MD: Victor Hugo Jarquin MD Convict Guard: Victor Hugo Jarquin MD Symptoms: I48.20 - Chronic atrial fibrillation, unspecified Study Quality: Fair ECG Rhythm: Atrial Fibrillation Conclusions: - 1. Normal LV systolic function with mild LVH 2. Moderate biatrial enlargement 3. Normal cardiac valvular Dopplers 4. Normal RVSP 5. No pericardial effusion Findings Left Ventricle Normal left ventricular size and systolic function. There is mildly increased left ventricular wall thickness. The visually estimated ejection fraction is between 60-65%. Diastolic function is indeterminate on the basis of available data. E/E prime ratio is between 8 and 15 consistent with indeterminate filling pressures. Right Ventricle Normal right ventricular cavity size and systolic function. Atria The left atrium is moderately dilated. There is no evidence of interatrial shunt. The right atrium is moderately dilated. Aortic Valve Normal aortic valve structure and function. There is no aortic valve stenosis. There is no aortic valve regurgitation. Mitral Valve Likely normal mitral valve structure and function. There is trace mitral valve regurgitation. There is no mitral valve stenosis. Pulmonic Valve The pulmonic valve was not well visualized. Tricuspid Valve Likely normal tricuspid valve structure and function. There is mild tricuspid valve regurgitation. The right ventricular systolic pressure is normal. The right ventricular systolic pressure is 28 mmHg. Normal right atrial pressure. There is no evidence of pulmonary hypertension. Great Vessels All visible segments of the aorta are normal in size. The pulmonary artery was not well visualized. Venous The inferior vena cava is normal in size and collapses greater than 50% with inspiration. Pericardium/Pleural There is no evidence of pericardial effusion. Prior Study Comparison No significant change compared to prior study dated: 11/21/2019. Measurements 2D Linear Measurements IVSd: 1.39 0.6-0.9/0.6-1.0 cm LVIDd: 4.43 3.9-5.3/4.2-5.9 cm LVIDd Index: 2.10 2.4-3.2/2.2-3.1 cm/m2 LVIDs: 2.99 2.0-3.6 cm LVPWd: 1.39 0.7-1.1 cm Ao Root: 3.00 2.1-3.5 cm LA Diam: 5.00 2.7-3.8/3.0-4.0 cm LAIDs Index: 2.37 1.5-2.3 cm/m2 LV Mass: 299.38 67-162/88-224 g LV Mass Index: 141.89 43-95/49-115 g/m2 LVOT Diam: 2.40 3.0+(-)1.3 cm 2D Systolic Function EF 4C: 63.10 >55% EF 2C: 60.70 >55% EF BiP: 63.20 >55% Mitral Valve MV Pk E: 1.09 MV Decel Time: 120.00 E'Lateral: 11.60 E'Medial: 11.50 E/E' Med: 9.50 E/E' Lat: 9.40 PHT: 35.00 MVA PHT: 6.29 Decel Bourbon: 9.12 Aortic Valve AoV Pk Freddy: 1.25 AoV Mn Freddy: 0.83 AoV VTI: 0.26 AoV Pk Grad: 6.00 Aov Mn Grad: 3.00 EDGARDO Cont.VTI: 2.78 LVOT LVOT Pk Freddy: 0.81 LVOT Mn Freddy: 0.54 LVOT VTI: 0.16 LVOT Pk Grad: 3.00 LVOT Mn Grad: 1.00 LVOT Diam: 2.40 LVOT Area: 4.52 Diastolic Function MV Pk E: 1.09 E'Medial: 11.50 E/E' Med: 9.50 E' Laterial: 11.60 E/E' Lat: 9.40 Right Ventricle TAPSE (mm): 19.00 TVS' Freddy: 9.00 Tricuspid Valve TR Pk Freddy: 2.49 TR Pk Grad: 25.00 RA Press: 3.00 RVSP: 28.00 Great Vessels Aorta Ao Root-2D: 3.00 2.0-3.7 cm Ao Asc: 3.50 2.1-3.4 cm Pulmonary Valve PV Pk Freddy: 1.00 Peak PV Grad: 4.00 Updated in Other Vendor System with Status of Final Victor Hugo Jarquin MD electronically signed on 12/11/2021 8:58:07 PM with status of Final
== END ==
LOC: HO.CARD 13:51
PROVIDERS: PCP Internal Medicine; Visit Provider Internal Medicine Cardiovascular Disease
DX: I48.20 Chronic atrial fibrillation, unspecified (principal); I10 Essential (primary) hypertension
CPT/HCPCS: 93306

== ENCOUNTER 2021-12-18 11:47 | Day surgery (SDC) | payer MEDICARE, SELFPAY ==
[2021-12-13 09:37] VITALS: BMI 34.8
--- NOTE | 2021-12-18 11:49 | P.CONAN_ITS ---
HPI - Anesthesia Eval Consult details Narrative: 71 yo male patient for EGD, Colonoscopy [facility] Active Problems Active Problems: All Active Problems (Updated 12/13/21 @ 09:40 by Ting Jara RN) Arthralgia (Acute) Elevated sed rate (Acute) Polyarthralgia (Acute) DMII (diabetes mellitus, type 2) (Acute) HTN (hypertension) (Acute) Chronic atrial fibrillation (Acute). On xarelto. Last dose 12/13/21 Increased BMI. Denies snoring or SIRI Past Medical History Medical History Barretts esophagus Chronic atrial fibrillation COVID-19 vaccine series completed Diabetes mellitus Elevated cholesterol Hepatitis C History of cardioversion HTN (hypertension) Family History Family History Father CVD (cardiovascular disease) Mother No problems noted. Family history of problems with anesthesia: No Surgical History Surgical History H/O colonoscopy History of esophagogastroduodenoscopy (EGD) History of total left knee replacement Hx of tonsillectomy History of Problems with Anesthesia: No Social History Social History Household Members: Spouse Housing: House Do you presently have visiting nurse or other home services: No Patient Tobacco Use Status: Former Tobacco user Quit Date: 1991 Tobacco use type: Cigarette Second Hand Smoke Exposure: Yes Use of substances other than those prescribed or required for medical reasons: No Have you been hit, kicked, punched, or otherwise hurt by someone within the past year? If so, by whom?: No Are you DNR?: Yes Advance Directives: No Advance Directives Information Provided: Yes Advance Directives on File: No Recently lost weight without trying: No Eating poorly because of decreased appetite: No Nutrition Risks: No Nutritional Risk Poor oral hygiene: No service: No Current occupational status: employed Meds Allergies Allergy/AdvReac Type Severity Reaction Status Date / Time No Known Allergies Allergy Verified 09/16/21 13:08 [No Known Allergies*] Home Medications Medication Instructions Recorded Confirmed Last Taken Type brimonidine 0.2 % eye drops 1 drp OPHTHALMIC (EYE) BID 12/11/20 12/13/21 Unknown History hydrochlorothiazide 50 mg tablet 50 mg PO DAILY 12/11/20 12/13/21 09/16/21 History lisinopril 40 mg tablet 40 mg PO DAILY 12/11/20 12/13/21 Unknown History metformin 750 mg tablet,extended 2,250 mg PO BEDTIME 12/11/20 12/13/21 Unknown History release 24 hr pantoprazole 40 mg tablet,delayed 40 mg PO DAILY 12/11/20 12/13/21 Unknown History release simvastatin 10 mg tablet 10 mg PO BEDTIME 12/11/20 12/13/21 Unknown History netarsudil 0.02 %-latanoprost 1 drp OPHTHALMIC (EYE) BEDTIME 09/16/21 12/13/21 Unknown History 0.005 % eye drops (Rocklatan) timolol maleate 0.5 % eye drops 1 drp OPHTHALMIC (EYE) QAM 09/16/21 12/13/21 Unknown History latanoprost 0.005 % eye drops 1 drp OPHTHALMIC (EYE) QPM 12/13/21 12/13/21 Unknown History Exam Exam Date and Time: December 18, 2021 1149 Height,Weight and Vital Signs: Height 5 ft 9 in Weight 107.048 kg Vital Signs Temp Pulse Resp BP Pulse Ox 12/18/21 12:05 97.2 F 116 H 18 121/88 99 Pertinent Lab Results Pertinent Lab Results: Lab Results 12/18/21 Range/Units 12:47 POC Glucose 201 H (60-115) mg/dL Airway Mallampati Class: III TM Dist: >3cm (Receding jaw. May be DI but no history of DI in past) Neck ROM: Full Loose/Missing/Broken Teeth: No Heart: Irregularly irregular Lungs: CTAB Assessment and Plan Assessment Anesthesia Assessment: Anesthesia Plan Discussed and Chart Reviewed Final Anesthetic Review Family History of Problems with Anesthesia: No History of Problems with Anesthesia: No NPO: Yes ASA Class: III Final Preanesthetic Review: No Changes in Pt Med Stat, Meds/Allgs Chart Reviewed, Consent Obtained/Reviewed and Anes Risks/Benef Reviewed Patient Risk: Intermediate Procedure Risk: Low Anesthetic Plan Anesthetic Plan: MAC: Disposition: Standard PACU
[2021-12-18 12:05] VITALS: BP 121/88; PULSE 116; RESP 18; TEMP 36.2; O2SAT 99
[2021-12-18] MEDS: Lactated Ringers 1,000 ML 100 ML IVCONT (12:49)
[2021-12-18 12:50] LABS: Glucose, Whole Blood 201 mg/dL (60-115)
--- NOTE | 2021-12-18 13:14 | P.HPSUR_ITS ---
Pre-Procedural Eval Section A Date of Service: 12/18/21 Section B Chief Complaint: Screening, Santos's Details of Present Illness: see H&P no changes Relevant Family History (Specify if Yes): No Relevant Social History: None Present Medications: see Short Stay Collaborative assessment Medical History: No relevant PMH History of Previous Operations: No relevant previous surgery Allergies: Allergies Allergy/AdvReac Type Severity Reaction Status Date / Time No Known Allergies Allergy Verified 09/16/21 13:08 [No Known Allergies*] Review of Systems Sugical H&P ROS: Negative: Constitution, Cardiovascular, Respiratory, Neurolog ical, Psychiatric, Hem-Onc, Allergic/Immunologic, Gastrointestinal, Genitourinary, Musculoskeletal, Integumentary, Endocrine and Eyes/Ears/Nose/Throat Exam Surgical H&P Exam: Normal: HEENT, Normal: Heart, Normal: Lungs, Normal: Extremities, Normal: Abdomen, Normal: Skin and Normal: Neurological Plan Diagnosis/Plan: Unchanged I have reviewed the history and physical and performed a pertinent physical examination on my patient. No changes have occurred unless specified.
[2021-12-18 14:14] VITALS: BP 105/89; PULSE 80; RESP 12; TEMP 36.8; O2SAT 94
--- NOTE | 2021-12-18 14:15 | PM.OP ---
Brief Operative Note Date of Service: 12/18/21 Pre-op diagnosis: barretts screening Post-op diagnosis: same (colon polyps, esophageal polyp and nodule) Procedure: egd colonosocpy Surgeon: Chepe Barlow Anesthesia: MAC Was an [employer] Health [employer] Safety Professor used for this Procedure?: No Estimated blood loss (mL): 5 Pathology: other (see path req) Condition: stable Disposition: PACU
[2021-12-18 14:29] VITALS: BP 86/52; PULSE 88; RESP 18; TEMP 36.7; O2SAT 96
[2021-12-18 14:49] VITALS: BP 103/63; PULSE 78; RESP 18; O2SAT 97
[2021-12-18 15:10] VITALS: BP 104/74; PULSE 79; RESP 18; TEMP 36.7; O2SAT 97
--- NOTE | 2021-12-24 15:18 | OP_ITS ---
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 PREOPERATIVE DIAGNOSIS: POSTOPERATIVE DIAGNOSIS: PROCEDURE PERFORMED: 1. Upper endoscopy with biopsy. 2. Colonoscopy to the terminal ileum with snare polypectomy. ESTIMATED BLOOD LOSS: COMPLICATIONS: ANESTHESIA: ASSISTANTS: SPECIMENS: MEDICATIONS: Monitored anesthesia care. DESCRIPTION OF PROCEDURE: The history and physical were performed. The risks and benefits of the procedure were explained to the patient and informed consent was obtained. The patient was place in the left lateral decubitus position. The Olympus video gastroscope was introduced into esophagus, stomach and duodenum. Examination was performed and the scope was removed. He was repositioned for colonoscopy. A digital rectal exam performed and was found to be normal. The Olympus pediatric video colonoscope was introduced into the rectum and advanced to cecum without difficulty. The cecum was identified by transillumination, palpation and identification of ileocecal valve. Examination was performed and the scope was removed. He tolerated both procedures well and was transferred to recovery area in stable condition. FINDINGS: Esophagus: There were change of Santos esophagus with islands of salmon-colored mucosa extending from the EG junction at 36 cm up to about 30 cm. Biopsies were obtained in all 4 quadrants at about 2 cm intervals. There was polypoid raised lesion at 33 cm, measuring approximately 15 x 20 mm. This was biopsied. There was also a 10 mm slightly raised nodular lesion at 30 cm from the incisors. This was also biopsied. There was a small hiatal hernia. Stomach: Stomach was normal. Duodenum: The bulb and second portion were normal. Colonoscopy: The terminal ileum was normal. The visualized colonic mucosa was normal; however, there was large amount of residual stool, which was very tenacious and could not be irrigated away from the mucosa effectively. This limited the sensitivity of the examination for detection of small polyps. There were 2 sessile polyps in the transverse colon, both measured less than 10 mm. These were removed with cold snare and recovered via suction. No other polyps were identified, although exam was extremely limited. There was a mild sigmoid diverticulosis. Retroflex examination was normal. IMPRESSION: 1. Santos esophagus. 2. Colon polyps. 3. Polypoid esophageal lesion as above. 4. Esophageal nodule. RECOMMENDATIONS: 1. Follow up the biopsy results. 2. He will need repeat colonoscopy at a 6 to 12 month interval with a different prep for better detection of small polyps given today's limitations. MD BROOKS Rushing/BUSHRA / [id number] MTDD
== END 2021-12-18 15:56 | disposition home or self-care (01) ==
PROVIDERS: PCP Internal Medicine; Visit Provider Internal Medicine Gastroenterology
PROC: 0DJD8ZZ Inspection of Lower Intestinal Tract, Via Natural or Artificial Opening Endoscopic (ICD-10-PCS; CPT 45378; principal; 2021-12-18 13:00)
DX: Z12.11 Encounter for screening for malignant neoplasm of colon (principal); Z86.010 Personal history of colon polyps; D12.3 Benign neoplasm of transverse colon; K57.30 Diverticulosis of large intestine without perforation or abscess without bleeding; K22.70 Barrett's esophagus without dysplasia; C15.9 Malignant neoplasm of esophagus, unspecified; K44.9 Diaphragmatic hernia without obstruction or gangrene; B18.2 Chronic viral hepatitis C; I10 Essential (primary) hypertension; E78.00 Pure hypercholesterolemia, unspecified; I48.20 Chronic atrial fibrillation, unspecified; Z79.01 Long term (current) use of anticoagulants; E11.9 Type 2 diabetes mellitus without complications; Z79.84 Long term (current) use of oral hypoglycemic drugs; Z79.899 Other long term (current) drug therapy; Z66 Do not resuscitate; Z96.652 Presence of left artificial knee joint; Z87.891 Personal history of nicotine dependence
CPT/HCPCS: 45385; 43239; 82947; 88305; 88360; J2250; J2370

== ENCOUNTER → 2021-12-31 15:11 | Outpatient (BNVA) | payer MEDICARE, SELFPAY | PROVIDERS: PCP Internal Medicine; Visit Provider Internal Medicine Cardiovascular Disease | DX: I48.20 Chronic atrial fibrillation, unspecified (principal); I10 Essential (primary) hypertension | CPT/HCPCS: 99212 ==

== ENCOUNTER 2022-02-07 12:33 | Outpatient (REF) | payer MEDICARE, SELFPAY ==
[2022-02-07 13:38] LABS: MANUAL DIFF FLAG NO
[2022-02-07 13:42] LABS: Basophils Percent Auto 0.5 % (0-2); Eosinophils Absolute Auto 0.1 X10*3/uL (0.0-0.4); Eosinophils Percent Auto 1.9 % (0-4); Hematocrit 40.6 % (42.0-52.0); Hemoglobin 13.5 g/dl (14.0-18.0); Imm Gran Abs Auto 0.05 X10*3/uL (0.00-0.03); Imm Gran Pct Auto 0.8 % (0.0-0.4); Lymphocytes Absolute Auto 1.2 X10*3/uL (1.2-4.9); Lymphocytes Percent Auto 19.4 % (20-40); Mean Corpuscular HGB Conc 33.3 g/dl (31.0-36.0); Mean Corpuscular Hemoglobin 31.2 pg (27.0-33.0); Mean Corpuscular Volume 93.8 fL (80.0-98.0); Mean Platelet Volume 11.4 fL (9.4-12.4); Monocytes Absolute Auto 0.6 X10*3/uL (0.1-1.2); Monocytes Percent Auto 9.4 % (2-11); Platelet Count 175 X10*3/uL (160-400); Red Blood Count 4.33 X10*6/uL (4.60-5.80); Red Cell Distribution Width 13.3 % (11.0-16.0); White Blood Count 5.9 X10*3/uL (4.8-10.8)
[2022-02-07 14:05] LABS: Alanine Aminotransferase 49 U/L (0-40); Albumin Level 3.9 g/dL (3.5-5.0); Alkaline Phosphatase 38 U/L (39-117); Anion Gap 15 (12-20); Aspartate Amino Transferase 48 U/L (5-37); Bilirubin Total 1.2 mg/dL (0.0-1.0); Blood Urea Nitrogen 20 mg/dL (9-16); C Reactive Protein 0.85 mg/dL (< or = 0.50); Calcium 9.2 mg/dL (8.4-10.2); Carbon Dioxide 28 mmol/L (22-29); Chloride 100 mmol/L (96-108); Cholesterol 158 mg/dL; Estimated Glomerular Filt Rate 51; Glucose Fasting 175 mg/dL (60-99); HDL Cholesterol 47 mg/dL; LDL Cholesterol Calculated 91 mg/dl; Potassium 4.6 mmol/L (3.3-5.1); Sodium 138 mmol/L (135-145); Total Protein 6.8 g/dL (6.5-8.0); Triglycerides 101 mg/dL; Uric Acid 10.5 mg/dL (3.4-7.0)
[2022-02-07 14:18] LABS: Estimated Average Glucose 134 mg/dL; Hemoglobin A1c % 6.3 %
[2022-02-07 14:29] LABS: Erythrocyte Sedimentation Rate 9 MM/HR (0-15)
== END 2022-02-07 12:34 | disposition home or self-care (01) ==
LOC: HO.HMGCLDS 12:33
PROVIDERS: PCP Internal Medicine; Visit Provider Internal Medicine
DX: I10 Essential (primary) hypertension (principal); I48.20 Chronic atrial fibrillation, unspecified; E11.9 Type 2 diabetes mellitus without complications; E66.09 Other obesity due to excess calories; K22.70 Barrett's esophagus without dysplasia; H40.9 Unspecified glaucoma
CPT/HCPCS: 36415; 80053; 80061; 83036; 84550; 85025; 85652; 86140

== ENCOUNTER 2023-07-08 11:57 | Day surgery (SDC) | payer MEDICARE, SELFPAY ==
--- NOTE | 2023-07-07 09:15 | HO.ANESPROP2 ---
Documented by User: Sadaf Aguirre NP 07/07/23 09:16 HPI - Anesthesia Eval Consult details Narrative: 72yo M for Colonoscopy Xarelto for afib PMFSH Active Problems Active Problems: All Active Problems (Updated 12/13/21 @ 09:40 by Ting Jara RN) Arthralgia (Acute) Elevated sed rate (Acute) Polyarthralgia (Acute) DMII (diabetes mellitus, type 2) (Acute) HTN (hypertension) (Acute) Chronic atrial fibrillation (Acute) Past Medical History Medical History Esophageal cancer COVID-19 vaccine series completed History of cardioversion Barretts esophagus Elevated cholesterol Hepatitis C Diabetes mellitus HTN (hypertension) Chronic atrial fibrillation Family History Family History Father CVD (cardiovascular disease) Mother No problems noted. Family history of problems with anesthesia: No Surgical History Surgical History Hx of prostate biopsy History of total left knee replacement History of esophagogastroduodenoscopy (EGD) H/O colonoscopy Hx of tonsillectomy History of Problems with Anesthesia: No Social History Social History Household Members: Spouse Housing: House Do you presently have visiting nurse or other home services: No Patient Tobacco Use Status: Former Tobacco user Quit Date: 1991 Tobacco use type: Cigar Second Hand Smoke Exposure: Yes Advance Directives: No Advance Directives Information Provided: Yes service: No Current occupational status: employed Meds Allergies Allergy/AdvReac Type Severity Reaction Status Date / Time No Known Allergies Allergy Verified 09/16/21 13:08 [No Known Allergies*] Home Medications Medication Instructions Recorded Confirmed Last Taken Type brimonidine 0.2 % eye drops 1 drp ophthalmic (eye) BID 12/11/20 12/31/21 Unknown History hydrochlorothiazide 50 mg tablet 50 mg PO DAILY 12/11/20 12/31/21 09/16/21 History lisinopril 40 mg tablet 40 mg PO DAILY 12/11/20 12/31/21 Unknown History pantoprazole 40 mg tablet,delayed 40 mg PO DAILY 12/11/20 12/31/21 07/08/23 History release simvastatin 10 mg tablet 10 mg PO BEDTIME 12/11/20 12/31/21 Unknown History netarsudil 0.02 %-latanoprost 1 drp ophthalmic (eye) BEDTIME 09/16/21 12/31/21 Unknown History 0.005 % eye drops (Rocklatan) timolol maleate 0.5 % eye drops 1 drp ophthalmic (eye) QAM 09/16/21 12/31/21 Unknown History metformin 750 mg tablet,extended 750 mg PO TID 12/31/21 12/31/21 Unknown History release 24 hr Exam Exam Date and Time: July 07, [id number] Narrative Narrative: ECHO 2021 Conclusions: - 1. Normal LV systolic function with mild LVH 2. Moderate biatrial enlargement 3. Normal cardiac valvular Dopplers 4. Normal RVSP 5. No pericardial effusion Assessment and Plan Assessment Anesthesia Assessment: Chart Reviewed Final Anesthetic Review Family History of Problems with Anesthesia: No History of Problems with Anesthesia: No Documented by User: Judy Marinelli MD 07/08/23 12:41 PMFSH Past Medical History Medical History Esophageal cancer COVID-19 vaccine series completed History of cardioversion Barretts esophagus Elevated cholesterol Hepatitis C Diabetes mellitus HTN (hypertension) Chronic atrial fibrillation Family History Family History Father CVD (cardiovascular disease) Mother No problems noted. Surgical History Surgical History Hx of prostate biopsy History of total left knee replacement History of esophagogastroduodenoscopy (EGD) H/O colonoscopy Hx of tonsillectomy Social History Social History Household Members: Spouse Housing: House Do you presently have visiting nurse or other home services: No Patient Tobacco Use Status: Former Tobacco user Quit Date: 1991 Tobacco use type: Cigar Second Hand Smoke Exposure: Yes Advance Directives: No Advance Directives Information Provided: Yes service: No Current occupational status: employed Meds Allergies Allergy/AdvReac Type Severity Reaction Status Date / Time No Known Allergies Allergy Verified 09/16/21 13:08 [No Known Allergies*] Home Medications Medication Instructions Recorded Confirmed Last Taken Type brimonidine 0.2 % eye drops 1 drp ophthalmic (eye) BID 12/11/20 12/31/21 Unknown History hydrochlorothiazide 50 mg tablet 50 mg PO DAILY 12/11/20 12/31/21 09/16/21 History lisinopril 40 mg tablet 40 mg PO DAILY 12/11/20 12/31/21 Unknown History pantoprazole 40 mg tablet,delayed 40 mg PO DAILY 12/11/20 12/31/21 07/08/23 History release simvastatin 10 mg tablet 10 mg PO BEDTIME 12/11/20 12/31/21 Unknown History netarsudil 0.02 %-latanoprost 1 drp ophthalmic (eye) BEDTIME 09/16/21 12/31/21 Unknown History 0.005 % eye drops (Rocklatan) timolol maleate 0.5 % eye drops 1 drp ophthalmic (eye) QAM 09/16/21 12/31/21 Unknown History metformin 750 mg tablet,extended 750 mg PO TID 12/31/21 12/31/21 Unknown History release 24 hr Exam Airway Mallampati Class: II TM Dist: >3cm Neck ROM: Limited Heart: a fib Lungs: cta Assessment and Plan Assessment Anesthesia Assessment: Anesthesia Plan Discussed Final Anesthetic Review NPO: Yes ASA Class: III Final Preanesthetic Review: No Changes in Pt Med Stat, Meds/Allgs Chart Reviewed, Consent Obtained/Reviewed and Anes Risks/Benef Reviewed Patient Risk: Intermediate Procedure Risk: Low Anesthetic Plan Anesthetic Plan: MAC: Disposition: Standard PACU
[2023-07-08 11:59] VITALS: BP 139/83; PULSE 62; RESP 18; TEMP 36.1; O2SAT 97; BMI 31.0
[2023-07-08 12:11] LABS: Glucose, Whole Blood 158 mg/dL (60-115)
[2023-07-08] MEDS: Lactated Ringers 1,000 ML 100 ML IVCONT (12:31)
--- NOTE | 2023-07-08 13:00 | MHC.SHP ---
Pre-Procedural Eval Section A Date of Service: 07/08/23 Section B Chief Complaint: Encounter for screening for malignant neoplasm Details of Present Illness: see H&P no changes Relevant Family History (Specify if Yes): No Relevant Social History: None Present Medications: see Short Stay Collaborative assessment Medical History: No relevant PMH History of Previous Operations: No relevant previous surgery Allergies: Allergies Allergy/AdvReac Type Severity Reaction Status Date / Time No Known Allergies Allergy Verified 09/16/21 13:08 [No Known Allergies*] Review of Systems Sugical H&P ROS: Negative: Constitution, Cardiovascular, Respiratory, Neurological, Psychiatric, Hem-Onc, Allergic/Immunologic, Gastrointestinal, Genitourinary, Musculoskeletal, Integumentary, Endocrine and Eyes/Ears/Nose/Throat Exam Surgical H&P Exam: Normal: HEENT, Normal: Heart, Normal: Lungs, Normal: Extremities, Normal: Abdomen, Normal: Skin and Normal: Neurological Plan Diagnosis/Plan: Unchanged I have reviewed the history and physical and performed a pertinent physical examination on my patient. No changes have occurred unless specified. Time Spent With Patient Time: Total time managing care of this patient today ____ minutes.
--- NOTE | 2023-07-08 13:47 | PM.OP ---
Brief Operative Note Date of Service: 07/08/23 Pre-op diagnosis: screening Post-op diagnosis: same Procedure: colonoscopy Surgeon: Chepe Barlow Anesthesia: MAC Was an Medical Communication Specialist used for this Procedure?: No Estimated blood loss (mL): 5 Pathology: other Condition: stable Disposition: PACU
[2023-07-08 13:50] VITALS: BP 90/60; PULSE 77; RESP 16; TEMP 36.1; O2SAT 97
[2023-07-08 14:12] VITALS: BP 130/76; PULSE 77; RESP 18; TEMP 36.1; O2SAT 97
--- NOTE | 2023-07-08 23:20 | OP_ITS ---
DATE OF SERVICE: 07/08/2023 SURGEON: Cheep Barlow MD INDICATIONS: Colon cancer screening and incomplete colonoscopy within the last 3 years due to poor prep. PREOPERATIVE DIAGNOSIS: POSTOPERATIVE DIAGNOSIS: PROCEDURE PERFORMED: Colonoscopy to the cecum with snare polypectomy and biopsy. ESTIMATED BLOOD LOSS: COMPLICATIONS: ANESTHESIA: Monitored anesthesia care. ASSISTANTS: SPECIMENS: DESCRIPTION OF PROCEDURE: A history and physical was performed. The risks and benefits of the procedure were explained to the patient. Informed consent was obtained. The patient was placed in the left lateral decubitus position. A digital rectal exam was performed and was found to be normal. The Olympus pediatric video colonoscope was introduced in the rectum and advanced to the cecum without difficulty. The cecum was identified by transillumination, palpation, and identification of ileocecal valve. Examination was performed. The scope was removed. He tolerated the procedure well and was returned to the recovery area in stable condition. FINDINGS: The terminal ileum was not examined. The visualized colonic mucosa was normal. There was some liquid stool coating the mucosa in the right colon and transverse colon. This was washed and suctioned. Multiple polyps were identified and removed using a combination of snare cautery and biopsy forceps. These were located in the right colon x2, hepatic flexure, and 60 cm, all were less than 10 mm. There was sigmoid diverticulosis to a moderate degree. There were changes consistent with radiation proctitis in the rectum. There was no bleeding. Retroflexed examination showed internal hemorrhoids that were small to moderate in size. IMPRESSION: Colon polyps. RECOMMENDATION: Follow up the biopsy results. MD BROOKS Rushing/LEOLAL / [id number]
== END 2023-07-08 15:09 | disposition home or self-care (01) ==
PROVIDERS: PCP Physician Assistant; Visit Provider Internal Medicine Gastroenterology
PROC: 0DJD8ZZ Inspection of Lower Intestinal Tract, Via Natural or Artificial Opening Endoscopic (ICD-10-PCS; CPT 45378; principal; 2023-07-08 13:00)
DX: Z12.11 Encounter for screening for malignant neoplasm of colon (principal); Z86.010 Personal history of colon polyps; D12.2 Benign neoplasm of ascending colon; D12.3 Benign neoplasm of transverse colon; K63.5 Polyp of colon; K57.30 Diverticulosis of large intestine without perforation or abscess without bleeding; K64.8 Other hemorrhoids; C15.9 Malignant neoplasm of esophagus, unspecified; I10 Essential (primary) hypertension; E78.00 Pure hypercholesterolemia, unspecified; E11.9 Type 2 diabetes mellitus without complications; I48.20 Chronic atrial fibrillation, unspecified; B19.20 Unspecified viral hepatitis C without hepatic coma; Z85.46 Personal history of malignant neoplasm of prostate; Z92.3 Personal history of irradiation; Z79.01 Long term (current) use of anticoagulants; Z79.84 Long term (current) use of oral hypoglycemic drugs; Z79.899 Other long term (current) drug therapy; Z87.891 Personal history of nicotine dependence; Z98.890 Other specified postprocedural states; Z66 Do not resuscitate
CPT/HCPCS: 45385; 45380; 82947; 88305